=== PATIENT | female | born 1955 | race Caucasian/White ===

== ENCOUNTER 2019-11-27 08:34 | Outpatient (CLI) | payer BC, SELFPAY ==
--- NOTE | ~2019-11-27 | CT_ITS ---
EXAMINATION: CT abdomen pelvis wo/w con DATE: 11/27/2019 10:08 INDICATION: C material. TECHNIQUE: Computed tomography (CT) of the abdomen and pelvis was performed without and with intraven ous contrast using a total of 130 mL Omnipaque-350 intravenous contrast with a double-bolus technique for simultaneous opacification of the renal parenchyma and renal collecting system. Automated exposu re control and iterative reconstruction technique were employed. The dose-length product was 2209.62 mGy-cm. COMPARISON: Abdomen radiographs 11/27/2019 FINDINGS: The visualized portions of the lung bases demonstrate minimal atelectasis. There is a 4 mm nodule at minor fissure, likely benign. There is a 6 mm nodule at minor fissure, likely benign. No pleural effu alina. The heart size is normal. No pericardial effusion. There is diffuse hepatic steatosis. There ar e changes of cholecystectomy. The spleen, pancreas, adrenal glands, and kidneys are normal. There is no urolithiasis. The ureters are well opacified and are normal. The bladder is normal. There are 5.2 x 2.7 cm and 4.3 x 2.6 cm thin-walled cysts in the pelvis, likely peritoneal inclusion cysts. There a re no dilated loops of bowel. The appendix is not visualized. There are no pathologically enlarged ly mph nodes. There is no free intraperitoneal fluid. There is a supraumbilical ventral hernia containin g fat. There is severe thoracic and lumbar spondylosis. IMPRESSION: 1. No etiology for hematuria. 2. Two cysts in the pelvis, likely peritoneal inclusion cysts. 3. Supraumbilical ventral hernia containing fat. Reviewed, dictated and finalized at location A. L GLASS VIAL FILLER
--- NOTE | ~2019-11-27 | XR_ITS ---
EXAMINATION: XR abdomen/kub 1V EXAM DATE: 11/27/2019 09:02 INDICATION: Gross hematuria. TECHNIQUE: Frontal projection of the upper abdomen, frontal projection lower abdomen/pelvis for inter pretation. Correlation is made to CT scan same date. FINDINGS: There is moderate amount of colonic stool and gas. No small bowel dilation, nonobstructiv e bowel gas pattern. There are no suspicious calcifications identified. There is no organomegaly suspected. The bones are unremarkable. There are cholecystectomy clips. Lung bases unremarkable. IMPRESSION: Unremarkable abdomen x-ray exam. Reviewed, dictated and finalized at location B. TIME REPORTER
[2019-11-27 09:39] LABS: Blood Urea Nitrogen 18 mg/dL (8-26); Estimated Glomerular Filt Rate > 60
== END 2019-11-27 08:35 | disposition home or self-care (01) ==
LOC: ANHIMG 08:40
PROVIDERS: PCP Internal Medicine; Visit Provider Nurse Practitioner Adult Health
DX: R31.0 Gross hematuria (principal); N94.89 Other specified conditions associated with female genital organs and menstrual cycle; K43.9 Ventral hernia without obstruction or gangrene
CPT/HCPCS: 74018; 74178; Q9967

== ENCOUNTER 2025-01-13 08:57 | Outpatient (CLI) | payer MEDICARE, SELFPAY ==
--- NOTE | ~2025-01-13 | MM_ITS ---
EXAMINATION: MM screening caridad BI w sanjuana HISTORY: Screening TECHNIQUE: Craniocaudal and mediolateral oblique 3-D tomosynthesis images were obtained and synthetic 2-D images were generated. CAD analysis was submitted and interpreted. COMPARISON: Comparison to multiple prior studies sequentially, with oldest reviewed study dated 04/17. BREAST PARENCHYMAL COMPOSITION: Not dense: There are scattered areas of fibroglandular density. FINDINGS: There is no evidence of suspicious mass, calcification, or architectural distortion to sugg est malignancy in either breast. There has been no suspicious interval change. IMPRESSION: 1. No mammographic evidence of malignancy. 2. Recommend routine screening mammography in one year. BI-RADS Category 1: Negative Reviewed, dictated and finalized at location B.
--- OUTSIDE RECORDS SUMMARY | 2025-01-13 09:28 | XMS_ITS | Clinical Summary ---
Author Organization [facility] Address [address] [place] [address] Care Team Providers Care Aircraft De Icer Installer Name Role Phone Violeta De La Cruz MD Unavailable [phone] Manuel Archibald MD Primary Care Provider + [phone] Allergies Active Allergy Reactions Criticality Noted Date Comments Albuterol Hives Reaction: Hives, Erythromycin Other (See comments) Low Drop in BP Semaglutide Diarrhea,Nausea only High 05/22/2024 Medications ALPRAZolam (XANAX) 0.25 mg tablet Take by mouth 3 (three) times a day as needed 1 Active armodafiniL (NUVIGIL) 250 mg tablet armodafinil 250 mg tablet Active calcium-magnesi um-zinc tablet Take 1 tablet by mouth 2 (two) times a day Active MULTIVITAMIN ORAL Take 1 tablet by mouth daily Active cyanocobalamin, vitamin B-12, (VITAMIN B-12 ORAL) 5,000 mg 8 Active vitamin E (AQUASOL E, D-ALPHA TOCOPHEROL, ORAL) vitamin E Active hydrOXYzine (VISTARIL) 25 mg capsule TAKE 2 CAPSULES BY MOUTH EVERYDAY AT BEDTIME 4 Active OneTouch Ultra2 Meter misc USE TO TEST BLOOD SUGAR DAILY [address] (PROTONIX) 40 mg EC tablet Take 1 tablet (40 mg total) by mouth daily 4 Active glimepiride (AMARYL) 4 mg tabletIndicatio ns:type 2 diabetes mellitus Take 1 tablet (4 mg total) by mouth 2 (two) times a day 180 tablet 3 4 Active metFORMIN XR (GLUCOPHAGE XR) 500 mg 24 hr tablet Take 2 tablets (1,000 mg total) by mouth 2 (two) times a day 360 tablet 3 4 Active fenofibrate (TRIGLIDE) 160 mg tablet Take 1 tablet (160 mg total) by mouth daily 90 tablet 3 4 Active atorvastatin (LIPITOR) 40 mg tablet Take 1 tablet (40 mg total) by mouth daily 90 tablet 3 4 Active lisinopriL (PRINIVIL,ZESTR IL) 5 mg tablet Take 1 tablet (5 mg total) by mouth daily 90 tablet 3 4 Active BD Ultra-Fine Short Pen Needle 31 gauge x 5/16 needle Inject insulin daily 100 each 3 4 Active OneTouch Ultra Test strip Use to check sugars BID Dx code E11.65 on insulin 200 each 3 4 Active OneTouch Delica Plus Lancet 30 gauge misc Use to check sugar twice daily Dx E11.65 on insulin 200 each 3 4 Active TRESIBA 200 unit/mL (3 mL) pen for injection Inject 0.3 mL (60 Units total) under the skin nightly 54 mL 3 4 Active tirzepatide (Mounjaro) 2.5 mg/0.5 mL pen injector injection Inject 0.5 mL (2.5 mg total) under the skin every 7 days 2 mL 6 5 Active Active Problems Problem Noted Date Diagnosed Date Hyperlipidemia associated with type 2 diabetes kizzy chery 09/02/2024 Assessment & Plan (01/12/2025 3:49 PM CDT): Chronic problem. On statin therapy, no changes. Assessment & Plan (09/04/2024 2:53 PM RADIATION MONITOR): Chronic problem. On statin therapy, no changes. Hypertension associated with type 2 diabetes mariella litus 09/02/2024 Assessment & Plan (01/12/2025 3:49 PM CDT): Chronic problem, Controlled on lisinopril. No changes. Assessment & Plan (09/04/2024 2:53 PM RADIATION MONITOR): Chronic problem, Controlled on lisinopril. No changes. Ptosis of both eyelids 09/14/2021 Assessment & Plan (09/14/2021 11:29 AM RADIATION MONITOR): Has seen Oculoplastics at , is awaiting cataract surgery to be complete prior to eye lid surgery. Anxiety 08/24/2021 Contusion 08/24/2021 Dizziness 08/24/2021 Osteoarthritis of knee 08/24/2021 Obstructive sleep apnea syndrome 08/24/2021 Assessment & Plan (10/12/2023 9:40 AM RADIATION MONITOR): Due to continued symptoms, the patient will continue with CPAP at 10 cm water pressure. Due to insurance requirements, the patient will complete a nocturnal polysomnogram with split night protocol no MSLT to recertify for CPAP therapy. DME is [employer]. Patient verbalized understanding Nausea 08/24/2021 Malaise and fatigue 08/24/2021 Shoulder pain 08/24/2021 Sprain of ankle 08/24/2021 Foot pain 02/28/2021 Plantar fasciitis of right foot 02/28/2021 Gastroesophageal reflux disease 05/28/2020 Both eyes affected by mild n onproliferative diabetic retinopathy with macular edema, associated with type 2 diabetes mellitus 07/26/2018 Assessment & Plan (08/16/2023 10:10 AM CDT): She has only some very mild/trace noncentral macular edema in both eyes. Her vision is quite good. I have recommended observation at this time. She states she may be changing medications for her diabetic disease, and maybe moving onto Ozempic. I think it be safe for her to do so from an ocular standpoint. Assessment & Plan (11/10/2021 12:01 PM RADIATION MONITOR): Mild NPDR. Last HbA1c 7% OD with persistent parafoveal IRF cyst status post (s/p) Avastin x2. Near pinhole to 20/25+ today. Discussed with patient repeat Avastin, switching anti-VEGF agents, steroid injection, laser therapies, or observing. Discussed the potential for worsening DME after cataract surgery. Patient elects to monitor without injection today, and will monitor the DME after cataract surgery. OS without significant DME, recommend observation. Assessment & Plan (10/13/2021 10:07 AM RADIATION MONITOR): Mild NPDR OU with CI-DME OD. Prevoiusly on prolense with no improvement. Now s/p SVETLANA 4 weeks ago without significant improvement and persistent CI-DME OD today Consider repeat SVETLANA OD today Anal fissure 03/14/2014 Overview (02/01/2017): ANAL FISSURE Internal hemorrhoids 03/14/2014 Overview (02/01/2017): INT HEMRRHOID W COMP NEC Open wound of heel 02/17/2014 Surgical wound dehiscence 02/17/2014 Type 2 diabetes mellitus wit h hyperglycemia, with long-term current use of insulin Assessment & Plan (01/12/2025 3:50 PM CDT): Chronic problem, not at goal with frequent hypoglycemia. Lower glimepiride to aB only. Lower Tresiba to 40 units daily. Continue metformin. Start Mounjaro 2.5 mg weekly, she'll let us know if tolerating well and we can increase to 5 mg. Reviewed how to lower Tresiba if lows recur, or to email/call in so we can adjust medications. Update labs. Assessment & Plan (09/04/2024 2:54 PM RADIATION MONITOR): Chronic problem, not at goal. Mounjaro was too expensive. She is in open enrollment now and looking at options that will cover it better. After the first of the year she'll call us and we can send in Mounjaro again to check on camarena. Until then, increase glimepiride to 4 mg BID. Jules 3 placed for her today and she'll resume wearing this. Update labs and request eye exam. Assessment & Plan (05/22/2024 11:19 AM CDT): Chronic, uncontrolled, probably worsened Diet and exercise are cornerstone of the treatment was discussed I encouraged the patient to start 30 units daily walk Cut on carb intake no more than 2 carbs per meal and also overall calorie intake Will try GLP 1 again with Mounjaro, which sometimes can be tolerated better than Ozempic I sent a prescription for 2.5 mg weekly to start now. The patient is warned about the need to stop it in case of severe abdominal pain, nausea and/or diarrhea Increase metformin to a 1000 mg twice a day with meals Continue glimepiride 2 mg twice a day. Continue Tresiba 60 units at bedtime Start CGM with Roadtripperse 3. The patient had the 1st sensor placed and also was connected to our office via [employer] view Assessment & Plan (10/13/2021 10:13 AM RADIATION MONITOR): Persistent but mild ME OD - recommend repeat Avastin OD - R/B/A reviewed pt wished to proceed. Assessment & Plan (09/14/2021 11:27 AM RADIATION MONITOR): Persistent ME OD. Doubt prolensa having an effect, BG well controlled per pt. Ok stop prolensa, Discussed with patient the classification of Diabetic Retinopathy and guarded prognosis and progressive nature of the disease. Discussed therapeutic options including observation, laser, surgery and injections of medication into the eye. Risks, benefits and alternatives to therapy discussed with the patient include but not limited to infection, bleeding, damage to the eye and its structures, loss of vision, deformity,double vision, retinal detachment, retinal tears, elevated ocular pressure, pain, systemic complications such as heart attack or stroke,need for other types of eye medications or surgeries, and the potential for numerous repeated treatments with one or a combination of approaches. The FDA status of anti-VEGF medications were reviewed. The patient understood and wished to proceed with Avastin to the right. AMSLER grid monitoring. Patient is to follow up with us immediately if new changes on AMSLER, flashing lights, floaters, new central or peripheral scotoma, or new central distortion, pain or sudden vision loss occurs. Systemic control, including maintenance of goal blood pressure, blood sugar, and serum lipid levels recommended. Abstainance from smoking/tobacco encouraged Assessment & Plan (06/30/2021 11:15 AM CDT): Type 2 diabetes now with mild nonproliferative background diabetic retinopathy and mild macular edema in the right eye. A1c is 7. We discussed interventions for the macular edema including injections versus observation. After discussion risks and benefits the patient would like to try and bring her diabetes under better control of possible, were hoping that this will help control her macular edema and that she can avoid intravitreal injections. She is using pro lens eyedrops in the right eye, I am uncertain if this will really improve her macular edema, I have encouraged her to stay on this drop should she wish. I have asked that she return to see us roughly 8 weeks time, if the macular edema is worsening she may reconsider the need for intravitreal injections. Nuclear age-related cataract, both eyes Assessment & Plan (11/10/2021 12:06 PM RADIATION MONITOR): Okay to proceed with CEIOL OD. Patient understands the potential worsening of DME after cataract surgery and elects to monitor DME after cataract surgery. If ME worsens, will try a different anti-VEGF agent or intraocular steroid. Will check back a few weeks after cataract surgery. Assessment & Plan (10/13/2021 10:12 AM RADIATION MONITOR): Awaiting cataract surgery pending stabilization of DME . Assessment & Plan (09/14/2021 11:28 AM RADIATION MONITOR): She is considering cataract surgery, will send her back to Dr. De La Cruz when ME under control and ready for surgery. Assessment & Plan (06/30/2021 11:15 AM CDT): Recommend observation. Resolved Problems Problem Noted Date Diagnosed Date Resolved Date Essential hypertension 08/24/202109/02 Type 2 diabetes mellitus without complication 08/24/20 21 09/02/2024 Pure hypercholesterolemia 08/24/2021 Encounters Date Type Department Care Team Description 01/12/2025 1:30 PM CDT Office Visit [facility] [address] [address] Leticia Rdz PA Type 2 diabetes mellitus with hyperglycemia, with long-term current use of insulin (HCC) (Primary Dx); Hyperlipidemia associated with type 2 diabetes mellitus (HCC); Hypertension associated with type 2 diabetes mellitus (HCC) 12/23/2024 Telephone [facility] [place] [address] Camden Virgen MD 11/20/2024 Telephone [facility] [address] [address] Leticia Rdz PA Total Medical Supply from Last 3 Months Surgical History Surgery Date Site/Laterality Comments BREAST BIOPSY 10/29/1987 - 10/28/1988 Right Breast biopsy CHOLECYSTECTOMY 10/29/1985 - 10/28/1986 Cholecystectomy HYSTERECTOMY 10/29/2005 - 10/28/2006 Hysterectomy CARPAL TUNNEL RELEASE 10/29/1998 - 10/28/1999 Left Carpal tunnel release APPENDECTOMY 10/29/1995 - 10/28/1996 Appendectomy OTHER SURGICAL HISTORY 10/29/2006 - 10/28/2007 Hemorrhoidal banding RA/RP 05/04 OTHER SURGICAL HISTORY JOHN: CPAP ( reassed 2-3 wks ago ) ACHILLES TENDON SURGERY 05/29/2023 - 06/28/2023 Left ACHILLES TENDON SURGERY 10/29/2012 - 10/28/2013 Right DILATION AND CURETTAGE OF UTERUS 10/29/1993 - 10/28/1994 DILATION AND CURETTAGE OF UTERUS 10/29/1994 - 10/28/1995 COLONOSCOPY 08/27/2024 [facility] Medical History Medical History Date Comments Hx Other Medical Diet controlled DM Hx Other Medical sleep apnes Anxiety disorder Anxiety Hyperlipidemia Hyperlipidemia Type 2 diabetes mellitus (HCC) D iabetes type 2 Hx Other Medical JOHN DM (diabetes mellitus) (HCC) Asthma Family History Medical History Relation Name Comments Diabetes Brother 1 Diabetes Brother 2 Cancer Brother 3 Cancer Mother Diabetes Mother Diabetes Sister 1 Diabetes Sister 2 Amblyopia Neg Hx Blindness Neg Hx Cataracts Neg Hx Fuchs' dystrophy Neg Hx Glaucoma Neg Hx Hypertension Neg Hx Macular degeneration Neg Hx Retinal detachment Neg Hx Strabismus Neg Hx Stroke Neg Hx Thyroid disease Neg Hx Relation Name Status Comments Brother 1 Brother 2 Brother 3 Mother Sister 1 Sister 2 Social History Tobacco Use Types Packs/Day Years Used Date Smoking Tobacco: Never Smokeless Tobacco: Never Alcohol Use Standard Drinks/Week Comments No 0 (1 standard drink = 0.6 oz pur e alcohol) Comments Unknown Sex and Gender Information Value Date Recorded Sex Assigned at Not on file Legal Sex Female 12:20 AM RADIATION MONITOR Gender Identity Not on file Sexual Orientation Not on file Obstetrics History Last Filed Vital Signs Vital Sign Reading Time Taken Comments Blood Pressure 130/70 01/12/2025 1:28 PM CDT Pulse 67 01/12/2025 1:28 PM CDT Temperature 36.3 C (97.4 F) 10/12/2023 9:20 AM RADIATION MONITOR Respiratory Rate 18 01/12/2025 1:28 PM CDT Oxygen Saturation 97% 10/12/2023 9:20 AM RADIATION MONITOR Inhaled Oxygen Concentration - - Weight 91.3 kg (201 lb 3.2 oz) 01/12/2025 1:28 P M CDT Height 147.3 cm (4' 9.99 ) 01/12/2025 1:28 PM CD T Body Mass Index 42.07 01/12/2025 1:28 PM CDT Plan of Treatment Health Maintenance Due Date Last Done Comments Colon Cancer Screening-Colonoscopy 1957 Depression Screening 1957 Fall Risk Assessment 1957 Hepatitis C Screening 1957 Osteoporosis Screening-Bone Density Scan 1957 eGFR 1957 Lipid Panel 1957 DTaP/Tdap/Td Vaccine (1 - Tdap) 01/24/1968 Hepatitis B Screening 1975 Breast Cancer Screening-Mammogram 12/23/2012 012 Well Visit 65+ 2022 Pneumococcal vaccine 65+ (2 of 2 - PCV) 04/12/2024 04/12/2023, 01/12/2023 Covid-19 Vaccine (8 - 2023-2 5 season) 2024 08/13/2023, 07/26/2022, 03/20/2022, Additional history exists Influenza Vaccine (#1) 2024 , 04/12/2023, 01/12/2023, Additional history exists Dilated Eye Exam 08/16/2024 08/16/2023, , 10/13/2021, Additional history exists Hemoglobin A1C 07/15/2025 01/12/2025, 11/0 04/2024, 05/22/2024 Albumin Creatinine Ratio, Urine 09/04/2025 Foot Exam 09/04/2025 09/04/2024 Zoster Vaccine Completed 12/30/2023, 12/16/2021 Procedures Procedure Name Priority Date/Time Associated Diagnosis Comments POCT GLUCOSE Routine 01/12/2025 1:27 PM CDT Type 2 diabetes mellitus with hyperglycemia, with long-term current use of insulin (HCC) POCT HEMOGLOBIN A1C Routine 01/12/2025 1 :27 PM CDT Type 2 diabetes mellitus with hyperglycemia, with long-term current use of insulin (HCC) ALBUMIN CREATININE RATIO, URINE Routine 09/04/2024 1:43 PM RADIATION MONITOR Type 2 diabetes mellitus with hyperglycemia, with long-term current use of insulin (HCC) from Last 3 Months or Most Recently Relevant to Health Maintenance Results * (ABNORMAL) POCT hemoglobin A1c (01/12/2025 1:27 PM CDT) Hemoglobin A1C, POC 7.2 4.0 - 5.6 % Capillary blood 01/12/2025 1 :27 PM CDT Leticia CARIAS POINT OF CARE TEST ORDE RABIDANIA Final Result * (ABNORMAL) POCT glucose (01/12/2025 1:27 PM CDT) Glucose Blood, POC 259 mg/dL Comment:PPG 2 Hrs Blood 01/12/2025 1:27 PM CDT Leticia CARIAS POINT OF CARE TEST ORDE RABLES Final Result * Albumin Creatinine Ratio, Urine (09/04/2024 1:43 PM RADIATION MONITOR) Albumin Ur <12.0 mg/L Comment: Interpretive Data No reference range established. Current interpretive data was last revised 2019. Creatinine Ur 32.4 mg/dL LARISSA MAST Comment: Interpretive Data No reference range established. Current interpretive data was last revised 2019. Albumin Creatinine Ratio, Ur See Comment 1 - 29 LARISSA MAST Comment:Unable to calculate Urine 09/04/2024 1:43 PM RADIATION MONITOR 09/04/2024 8:33 PM RADIATION MONITOR Leticia CARIAS LAB URINE ORDERABLES Fi nal Result LARISSA MAST [id number] [place] [address] from Last 3 Months or Most Recently Relevant to Health Maintenance Insurance MEDICARE [employer]IONS MED[employer]ARE [employer]IONS Care Teams Aircraft De Icer Installer Relationship Specialty Start Date End Date Manuel Archibald MD [facility] [place] [address] PCP - General Internal Medicine 01/12/25 Violeta De La Cruz MD [address] [facility] [address] [address] Referring Physician Ophthalmology 06/30/21
--- OUTSIDE RECORDS SUMMARY | 2025-01-13 09:28 | XMS_ITS | Referral Summary ---
Author Organization [facility] Address [address] [place] [address] Care Team Providers Care Stull Installer Name Role Phone Violeta De La Cruz MD Unavailable Manuel Archibald MD Primary Care Provider [phone] Encounters Date Type Department Care Team Description 01/12/2025 1:30 PM CDT Office Visit [facility] [address] [address] Leticia Rdz PA Type 2 diabetes mellitus with hyperglycemia, with long-term current use of insulin (HCC) (Primary Dx); Hyperlipidemia associated with type 2 diabetes mellitus (HCC); Hypertension associated with type 2 diabetes mellitus (HCC) 12/23/2024 Telephone [facility] [address] [place] [address] Camden Virgen MD 11/20/2024 Telephone [facility] [address] [address] Leticia Rdz PA [facility] Supply from Last 3 Months Allergies Active Allergy Reactions Criticality Noted Date Comments Albuterol Hives Reaction: Hives, Erythromycin Other (See comments) Low Drop in BP Semaglutide Diarrhea,Nausea only High 05/22/2024 Medications ALPRAZolam (XANAX) 0.25 mg tablet Take by mouth 3 (three) times a day as needed Active armodafiniL (NUVIGIL) 250 mg tablet armodafinil [...] insulin daily 100 each 3 4 Active The Spoken ThoughtTouch Ultra Test strip Use to check sugars [...] changes. Assessment & Plan (09/04/2024 2:53 PM YARD FOREMAN): Chronic problem. On statin therapy, no changes. Hypertension associated with type 2 diabetes mariella litus 09/02/2024 Assessment & Plan (01/12/2025 3:49 PM CDT): Chronic problem, Controlled on lisinopril. No changes. Assessment & Plan (09/04/2024 2:53 PM YARD FOREMAN): Chronic problem, Controlled on lisinopril. No changes. Ptosis of both eyelids 09/14/2021 Assessment & Plan (09/14/2021 11:29 AM YARD FOREMAN): Has seen Oculoplastics at , is awaiting cataract surgery to be complete prior to eye lid surgery. Anxiety 08/24/2021 Contusion 08/24/2021 Dizziness 08/24/2021 Osteoarthritis of knee 08/24/2021 Obstructive sleep apnea syndrome 08/24/2021 Assessment & Plan (10/12/2023 9:40 AM YARD FOREMAN): Due to continued symptoms, the patient will [...] standpoint. Assessment & Plan (11/10/2021 12:01 PM YARD FOREMAN): Mild NPDR. Last HbA1c 7% OD with [...] observation. Assessment & Plan (10/13/2021 10:07 AM YARD FOREMAN): Mild NPDR OU with CI-DME OD. Prevoiusly [...] labs. Assessment & Plan (09/04/2024 2:54 PM YARD FOREMAN): Chronic problem, not at goal. Mounjaro was [...] 60 units at bedtime Start CGM with freestyle Jules 3. The patient had the 1st sensor placed and also was connected to our office via Jules view Assessment & Plan (10/13/2021 10:13 AM YARD FOREMAN): Persistent but mild ME OD - recommend repeat Avastin OD - R/B/A reviewed pt wished to proceed. Assessment & Plan (09/14/2021 11:27 AM YARD FOREMAN): Persistent ME OD. Doubt prolensa having an [...] eyes Assessment & Plan (11/10/2021 12:06 PM YARD FOREMAN): Okay to proceed with CEIOL OD. Patient understands the potential worsening of DME after cataract surgery and elects to monitor DME after cataract surgery. If ME worsens, will try a different anti-VEGF agent or intraocular steroid. Will check back a few weeks after cataract surgery. Assessment & Plan (10/13/2021 10:12 AM YARD FOREMAN): Awaiting cataract surgery pending stabilization of DME . Assessment & Plan (09/14/2021 11:28 AM YARD FOREMAN): She is considering cataract surgery, will send her back to Dr. De La Cruz when ME under control and ready for surgery. Assessment & Plan (06/30/2021 11:15 AM CDT): Recommend observation. Resolved Problems Problem Noted Date Diagnosed Date Resolved Date Essential hypertension 08/24/202109/02 Type 2 diabetes mellitus without complication 08/24/2009/02/2024 Pure hypercholesterolemia 08/24/2021 Social History Tobacco Use Types Packs/Day Years Used Date Smoking Tobacco: Never Smokeless Tobacco: Never Alcohol Use Standard Drinks/Week Comments No 0 (1 standard drink = 0.6 oz pur e alcohol) Comments Unknown Sex and Gender Information Value Date Recorded Sex Assigned at Not on file Legal Sex Female 12:20 AM YARD FOREMAN Gender Identity Not on file Sexual Orientation Not on file Last Filed Vital Signs Vital Sign Reading Time Taken Comments Blood Pressure 130/70 01/12/2025 1:28 PM CDT Pulse 67 01/12/2025 1:28 PM CDT Temperature 36.3 C (97.4 F) 10/12/2023 9:20 AM YARD FOREMAN Respiratory Rate 18 01/12/2025 1:28 PM CDT Oxygen Saturation 97% 10/12/2023 9:20 AM YARD FOREMAN Inhaled Oxygen Concentration - - Weight 91.3 kg (201 lb 3.2 oz) 01/12/2025 1:28 P M CDT Height 147.3 cm (4' 9.99 ) 01/12/2025 1:28 PM CD T Body Mass Index 42.07 01/12/2025 1:28 PM CDT Plan of Treatment Not on file Procedures Procedure Name Priority Date/Time Associated Diagnosis Comments POCT GLUCOSE Routine 01/12/2025 1:27 PM CDT Type 2 diabetes mellitus with hyperglycemia, with long-term current use of insulin (HCC) POCT HEMOGLOBIN A1C Routine 01/12/2025 1 :27 PM CDT Type 2 diabetes mellitus with hyperglycemia, with long-term current use of insulin (HCC) ALBUMIN CREATININE RATIO, URINE Routine 09/04/2024 1:43 PM YARD FOREMAN Type 2 diabetes mellitus with hyperglycemia, with long-term current use of insulin (HCC) from Last 3 Months or Most Recently Relevant to Health Maintenance Results * (ABNORMAL) POCT hemoglobin A1c (01/12/2025 1:27 PM CDT) Hemoglobin A1C, POC 7.2 4.0 - 5.6 % Capillary blood 01/12/2025 1 :27 PM CDT Leticia CARIAS POINT OF CARE TEST ORDE RABLES Final Result * (ABNORMAL) POCT glucose (01/12/2025 1:27 PM CDT) Glucose Blood, POC 259 mg/dL Comment:PPG 2 Hrs Blood 01/12/2025 1:27 PM CDT Leticia CARIAS POINT OF CARE TEST ORDE RABLES Final Result * Albumin Creatinine Ratio, Urine (09/04/2024 1:43 PM YARD FOREMAN) Albumin Ur <12.0 mg/L Comment: Interpretive Data No reference range established. Current interpretive data was last revised 2019. Creatinine Ur 32.4 mg/dL LARISSA MAST Comment: Interpretive Data No reference range established. Current interpretive data was last revised 2019. Albumin Creatinine Ratio, Ur See Comment 1 - 29 LARISSA MAST Comment:Unable to calculate Urine 09/04/2024 1:43 PM YARD FOREMAN 09/04/2024 8:33 PM YARD FOREMAN Leticia CARIAS LAB URINE ORDERABLES Fi nal Result LARISSA MAST [id number] [address] Department [place] [address] from Last 3 Months or Most Recently Relevant to Health Maintenance Insurance MEDICARE SOLUTIONS MEDICARE SOLUTIONS Care Teams Stull Installer Relationship Specialty Start Date End Date Manuel Archibald MD [address] [place] [address] PCP - General Internal Medicine 01/12/25 Violeta De La Cruz MD [address] [place] [address] [address], [place] [address] Referring Physician Ophthalmology 06/30/21
--- OUTSIDE RECORDS SUMMARY | 2025-01-13 09:28 | XMS_ITS | Encounter Summary ---
Author Organization [facility] Address [address] [place] [address] Care Team Providers Care Bacteriology Research Assistant Name Role Phone Violeta De La Cruz MD Unavailable [phone] Manuel Archibald MD Primary Care Provider [phone] Reason for Visit * Reason Comments Follow-up TYPE 2 DM Encounter Details Date Type Department Care Team (Late st Contact Info) Description 01/12/2025 1:30 PM CDT [facility] [address] [facility] [address] [place] [phone] [place] [address] [address] Type 2 diabetes mellitus with hyperglycemia, with long-term current use of insulin (HCC) (Primary Dx); Hyperlipidemia associated with type 2 diabetes mellitus (HCC); Hypertension associated with type 2 diabetes mellitus (HCC) Social History Tobacco Use Types Packs/Day Years Used Date Smoking Tobacco: Never Smokeless Tobacco: Never Alcohol Use Standard Drinks/Week Comments No 0 (1 standard drink = 0.6 oz pur e alcohol) Comments Unknown Sex and Gender Information Value Date Recorded Sex Assigned at Not on file Legal Sex Female 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 Gender Identity Not on file Sexual Orientation Not on file documented as of this encounter Last Filed Vital Signs Vital Sign Reading Time Taken Comments Blood Pressure 130/70 01/12/2025 1:28 PM CDT Pulse 67 01/12/2025 1:28 PM CDT Temperature - - Respiratory Rate 18 01/12/2025 1:28 PM CDT Oxygen Saturation - - Inhaled Oxygen Concentration - - Weight 91.3 kg (201 lb 3.2 oz) 01/12/2025 1:28 P M CDT Height 147.3 cm (4' 9.99 ) 01/12/2025 1:28 PM CD T Body Mass Index 42.07 01/12/2025 1:28 PM CDT documented in this encounter Patient Instructions * Patient Instructions* Leticia Rdz PA - 01/12/2025 1:30 PM CDT Stop glimepiride in the evening. Continue glimepiride in the morning for now. Lower Tresiba to 40 units. Drop it 5-10 units at a time if you're still having low sugars. Continue metformin. Start Mounjaro 2.5 mg once a week. If you're doing ok with it and want to increase the dose let us know. [employer] [facility] number: [phone] After 3-4 weeks on Mounjaro, lower the Tresiba another 10 units. documented in this encounter Ordered Prescriptions Prescription Sig Dispense Quantity Refills Last Filled Start Date End Date tirzepatide (Mounjaro) 2.5 mg/0.5 mL pen injector injection Inject 0.5 mL (2.5 mg total) under the skin every 7 days 2 mL 6 01/12/2025 documented in this encounter Progress Notes * Leticia Rdz PA - 01/12/2025 1:30 PM CDT Images from the original note were not included. [facility] Diabetes Follow Up Visit Subjective/Objective Patient ID: Melanie Osborne is a 69 y.o. female who comes in today to our Endocrinology clinic to follow up for DM management. Chief Complaint Follow-up (TYPE 2 DM) HPI Diabetes complications and/or comorbidity include: retinopathy Current medications: Metformin XR 500 mg 2 tabs BID Glimepiride 4 mg BID Mounjaro 2.5 mg weekly - never filled, it was cost prohibitive. But now covered. Tresiba 60 units qHS Intolerant of Ozempic (GI- severe diarrhea and nausea). 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 Home CBG monitoring results: checks blood sugars 4x/day via Jules. Overnight pattern: drops frequently Postprandial pattern: can drop during the day Neuropathy: Last foot exam: 09/21 Statin therapy: Yes. Atorvastatin 40 mg and fenofibrate. Last lipid panel: 06/20 (in notes from PCP). Nephropathy: On YU-I / ARB: Yes. Lisinopril 5 mg. Last MA: 09/21 Last creat/GFR: 06/20 (in notes from PCP).. Retinopathy: Date of last eye examination: 06/21 HTN - on lisinopril. Wt Readings from Last 5 Encounters: 01/12/25 91.3 kg (201 lb 3.2 oz) 09/04/24 91.2 kg (201 lb) 05/22/24 92.7 kg (204 lb 6.4 oz) 10/12/23 92.5 kg (204 lb) Labs: Last A1c: Lab Results Component Value Date HGBA1C 7.2 01/12/2025 HGBA1C 8.4 09/04/2024 HGBA1C 8.8 05/22/2024 Microalbumin: No results found for: MICROALBUR , [id number] Lab Results Component Value Date ALBCREATRATU See Comment 09/04/2024 No results found for: MALBCRTRAT Vitals: 01/12/25 1328 BP: 130/70 BP Location: Right arm Patient Position: Sitting Pulse: 67 Resp: 18 Weight: 91.3 kg (201 lb 3.2 oz) Height: 147.3 cm (4' 9.99 ) Physical Exam Constitutional: Appearance: Normal appearance. HENT: Head: Normocephalic and atraumatic. Cardiovascular: Rate and Rhythm: Normal rate and regular rhythm. Heart sounds: Normal heart sounds. Pulmonary: Effort: Pulmonary effort is normal. Breath sounds: Normal breath sounds. Neurological: General: No focal deficit present. Mental Status: She is alert. Psychiatric: Attention and Perception: Attention normal. Mood and Affect: Mood normal. Behavior: Behavior normal. Assessment/Plan Diagnoses and all orders for this visit: Type 2 diabetes mellitus with hyperglycemia, with long-term current use of insulin (HCC) (Primary) Assessment & Plan: Chronic problem, not at goal with frequent hypoglycemia. Lower glimepiride to aB only. Lower Tresiba to 40 units daily. Continue metformin. Start Mounjaro 2.5 mg weekly, she'll let us know if tolerating well and we can increase to 5 mg. Reviewed how to lower Tresiba if lows recur, or to email/call in so we can adjust medications. Update labs. Orders: - POCT hemoglobin A1c - POCT glucose - Comprehensive metabolic panel; Future - Lipid panel; Future Hyperlipidemia associated with type 2 diabetes mellitus (HCC) Assessment & Plan: Chronic problem. On statin therapy, no changes. Hypertension associated with type 2 diabetes mellitus (HCC) Assessment & Plan: Chronic problem, Controlled on lisinopril. No changes. Other orders - tirzepatide (Mounjaro) 2.5 mg/0.5 mL pen injector injection; Inject 0.5 mL (2.5 mg total) under the skin every 7 days ARETHA Ibarra documented in this encounter Miscellaneous Notes * Assessment & Plan Note - Leticia Rdz PA - 01/12/2025 3:50 PM CDT Associated Problem(s): Type 2 diabetes mellitus with hyperglycemia, with long- term current use of insulin ([facility]) Chronic problem, not at goal with frequent hypoglycemia. Lower glimepiride to aB only. Lower Tresiba to 40 units daily. Continue metformin. Start Mounjaro 2.5 mg weekly, she'll let us know if tolerating well and we can increase to 5 mg. Reviewed how to lower Tresiba if lows recur, or to email/call in so we can adjust medications. Update labs. * Assessment & Plan Note - Leticia Rdz PA - 01/12/2025 3:49 PM CDT Associated Problem(s): Hyperlipidemia associated with type 2 diabetes mellitus (HCC) Chronic problem. On statin therapy, no changes. * Assessment & Plan Note - Leticia Rdz PA - 01/12/2025 3:49 PM CDT Associated Problem(s): Hypertension associated with type 2 diabetes mellitus (HCC) Chronic problem, Controlled on lisinopril. No changes. documented in this encounter Plan of Treatment Scheduled Orders Name Type Priority Associated Diagnoses Orde r Schedule Comprehensive metabolic panel Lab Routine Type 2 diabetes mellitus with hyperglycemia, with long-term current use of insulin (HCC) Expected: 01/15/2025, Expires: 01/12/2026 Lipid panel Lab Routine Type 2 diabetes mellitus with hyperglycemia, with long-term current use of insulin (HCC) Expected: 01/15/2025, Expires: 01/12/2026 documented as of this encounter Procedures Procedure Name Priority Date/Time Associated Diagnosis Comments POCT HEMOGLOBIN A1C Routine 01/12/2025 1 :27 PM CDT Type 2 diabetes mellitus with hyperglycemia, with long-term current use of insulin (HCC) POCT GLUCOSE Routine 01/12/2025 1:27 PM CDT Type 2 diabetes mellitus with hyperglycemia, with long-term current use of insulin (HCC) documented in this encounter Results * (ABNORMAL) POCT glucose (01/12/2025 1:27 PM CDT) Glucose Blood, POC 259 mg/dL Comment:PPG 2 Hrs Blood 01/12/2025 1:27 PM CDT Leticia CARIAS POINT OF CARE TEST ORDE PRASHANT Final Result * (ABNORMAL) POCT hemoglobin A1c (01/12/2025 1:27 PM CDT) Hemoglobin A1C, POC 7.2 4.0 - 5.6 % Capillary blood 01/12/2025 1 :27 PM CDT Leticia CARIAS POINT OF CARE TEST EMMA CERDA Final Result documented in this encounter Visit Diagnoses Diagnosis Type 2 diabetes mellitus with hyperglycemia, with long-term current use of insulin (HCC)- Primary Hyperlipidemia associated with type 2 diabetes mellitus (HCC) Hypertension associated with type 2 diabetes mellitus (HCC) documented in this encounter Care Teams Bacteriology Research Assistant Relationship Specialty Start Date End Date Manuel Archibald MD [address] [place] [address] PCP - General Internal Medicine 01/12/25 Violeta De La Cruz MD [address] [facility] [address] [place] [address] Referring Physician Ophthalmology 06/30/21 documented as of this encounter
--- OUTSIDE RECORDS SUMMARY | 2025-01-13 09:28 | XMS_ITS | Clinical Summary ---
Author Organization [facility] Address [address] [place] [address] Care Team Providers Care Die Cutter Apprentice Name Role Phone Unavailable Primary Care Provider Unavailabl e Social History Tobacco Use Types Packs/Day Years Used Date Smoking Tobacco: Never Assessed Comments Unknown Sex and Gender Information Value Date Recorded Sex Assigned at Not on file Legal Sex Female 11:52 AM CDT Gender Identity Not on file Sexual Orientation Not on file Plan of Treatment Health Maintenance Due Date Last Done Comments Colorectal Cancer Screening Colonoscopy (10 Years) 1957 Hepatitis C 1975 DTaP, Tdap and Td Vaccines ( 1 - Tdap) 01/24/1976 Mammogram Screening 1997 Zoster Vaccines (1 of 2) 2007 Dexa Scan (General) 2022 Pneumococcal Vaccine: 65+ Ye ars (1 of 1 - PCV) 2022 COVID-19 Vaccine (2023-2 5 season) 2024 Influenza Adult (#1) 2024 RSV Immunization or 60+ Years (1 - 1-dose 75+ series) 01/24/2032 Meningococcal B Vaccine Aged Out No l onger eligible based on patient's age to complete this topic Meningococcal Vaccine Aged Out No tiffanie therese eligible based on patient's age to complete this topic RSV Immunizations Under 20 Months Aged Out No longer eligible based on patient's age to complete this topic
--- OUTSIDE RECORDS SUMMARY | 2025-01-13 09:28 | XMS_ITS | CONTINUITY OF CARE DOCUMENT ---
Author Name chao guidry Address Unknown Organization [facility] Address [address] [facility] [address] [place] [address] Phone [phone] Care Team Providers Care Deodorizer Operator Name Role Phone Karla Ramos MD Unavailable NORAH RIOS MD Unavailable [phone] NORAH RIOS MD Unavailable INSURANCE PROVIDERS Payer name Policy type / Coverage type [place] red alliance party ID [facility] [id number] Other [id number] [facility] [employer] [id number]
--- OUTSIDE RECORDS SUMMARY | 2025-01-13 09:29 | XMS_ITS | Clinical Summary ---
Author Organization [facility] Address [address] [place] [address] Care Team Providers Care Broadcast Producer Name Role Phone [facility], External Provider Primary Care Provider U navailable Allergies Active Allergy Reactions Criticality Noted Date Comments Erythromycin Hypotension High 02/20/2014 Medications glyBURIDE (DIABETA) 5 mg tablet Take 10 mg by mouth daily with breakfast. 5 mg at night Active INSULIN DETEMIR (LEVEMIR SUBCUT) Inject 25 Units by subcutaneous injection daily at bedtime. Active armodafinil (NUVIGIL) 150 mg tablet Take 150 mg by mouth daily at bedtime. Active LEVOCETIRIZINE DIHYDROCHLORIDE (XYZAL ORAL) Take 5 mg by mouth daily at bedtime. Active pantoprazole (PROTONIX) 40 mg Tablet, Delayed Release (E.C.) Take 40 mg by mouth 2 times daily. Active [place]-3 Fatty Acids (FISH OIL) 500 mg Capsule Take 1 Tab by mouth daily. Active MULTIVITAMIN ORAL Take 1 Tab by mouth daily. Active CALCIUM CARBONATE (CALCIUM 500 ORAL) Take 1 Tab by mouth 2 times daily. Active furosemide (LASIX) 20 mg tablet Take 20 mg by mouth 1 time daily as needed. Active ALPRAZolam (XANAX) 0.25 mg tablet Take 0.25 mg by mouth 3 times daily as needed for Anxiety. Active HYDROcodone-acetami nophen (NORCO) 5-325 mg tablet Take 1 Tab by mouth every 4 hours as needed for Pain, Moderate. 30 Tab 0 02/24/20 14 Active Active Problems Problem Noted Date Diagnosed Date Open wound of heel 02/17/2014 Surgical wound dehiscence 02/17/2014 Family History Medical History Relation Name Comments Breast Cancer Mother Relation Name Status Comments Mother Social History Tobacco Use Types Packs/Day Years Used Date Smoking Tobacco: Never Smokeless Tobacco: Never Alcohol Use Standard Drinks/Week Comments Yes 0 (1 standard drink = 0.6 oz pur e alcohol) rarely Comments Unknown Sex and Gender Information Value Date Recorded Sex Assigned at Not on file Legal Sex Female 5:58 AM DIRECTOR PROPERTY Gender Identity Not on file Sexual Orientation Not on file Occupation Industry Job Start Date Job End Date Not on file Not on file Not on file Not on file Last Filed Vital Signs Vital Sign Reading Time Taken Comments Blood Pressure 134/72 03/17/2014 8:54 AM CDT Pulse 79 02/23/2014 1:32 PM CDT Temperature 36.2 C (97.2 F) 02/23/2014 1:32 PM CDT Respiratory Rate 16 02/23/2014 1:32 PM CDT Oxygen Saturation 98% 02/23/2014 1:32 PM CDT Inhaled Oxygen Concentration - - Weight 88.5 kg (195 lb) 03/17/2014 8:54 AM CDT Height 149.9 cm (4' 11 ) 03/17/2014 8:54 AM CDT Body Mass Index 39.39 03/17/2014 8:54 AM CDT Plan of Treatment Health Maintenance Due Date Last Done Comments DTAP/TDAP/TD VACCINES (1 - Tdap) 01/24/1976 COLORECTAL SCREENING 2002 Colorectal Cancer Screening 2002 FIT-DNA Q 3 years 2002 FIT/FOBT Q 1 year 2002 Flex Sig/CT Colonography Q 5 years 2002 PNEUMOCOCCAL VACCINE 50+ YEA RS (1 of 1 - PCV) 2007 ZOSTER VACCINE (1 of 2) 2007 BREAST CANCER SCREENING 04/17/2018 04/17/20 17, 12/23/2011, 10/27/2010 OSTEOPOROSIS SCREENING 2022 INFLUENZA VACCINE (#1) 2024 RSV VACCINE (60+ or ) (1 - 1-dose 75+ series) 01/24/2032 Procedures Procedure Name Priority Date/Time Associated Diagnosis Comments MAMMO DIAGNOSTIC BILATERAL W OR WO CAD Routine 04/17/2017 3:10 PM CDT Breast lump from Last 3 Months or Most Recently Relevant to Health Maintenance Results * MAMMO DIAGNOSTIC BILATERAL W OR WO CAD (04/17/2017 3:10 PM CDT) Anatomical Region Laterality Modality Breast Bilateral Mammography 04/17/2017 3:10 PM CDT Impressions 04/18/2017 10:34 AM CDT IMPRESSION: Negative and stable bilateral diagnostic mammogram. Palpable lesion upper slightly inner right breast is consistent with a benign lipoma. Recommend routine clinical follow-up. OVERALL ASSESSMENT: BI-RADS category 2 - Benign findings Dictated from: [facility] 04/18/2017 10:34 AM CDT DIAGNOSTIC MAMMOGRAM BILATERAL DIGITAL WITH CAD AND LIMITED RIGHT BREAST SONOGRAM 04/17/2017 HISTORY: Palpable area upper slightly inner right breast. A bilateral diagnostic mammogram was performed. A BB was placed over the palpable area in the upper slightly inner right breast. The BB can only be seen on the oblique film and at the edge of the CC view. Comparison is made with multiple previous studies including 12/23/2011 and 10/27/2010. There are minimal scattered fibroglandular densities. No masses, suspicious calcifications, areas of asymmetry or distortion are identified. No mass is identified adjacent to the BB in the upper right breast. CAD was utilized. Sonography of the palpable lesion demonstrates an echogenic lesion just deep to the skin measuring approximately 1 x 2 cm. It is consistent with a benign lipoma. No suspicious mass, shadowing or distortion is identified. Mathew Ceron MD MAMMO ORDERABLES Olinda l Result from Last 3 Months or Most Recently Relevant to Health Maintenance Insurance BLUE ACCESS/TRUE BLUE PPO Advance Directives For more information, please contact: [phone] * Full Code (Latest Code Status on File) Date Activated Date Inactivated Comments 02/23/2014 8:35 AM 02/23/2014 4:11 PM Care Teams Broadcast Producer Relationship Specialty Start Date End Date [facility], External Provider [address] [place] [address] PCP - General 12/23/11
--- OUTSIDE RECORDS SUMMARY | 2025-01-13 09:29 | XMS_ITS | Patient Health Record ---
Author Organization [facility] Address [address] [address] Care Team Providers Care Research Quality Assurance Analyst Name Role Phone Manuel Archibald MD Primary Care Provider Unavaila sylvia Tate DPM, Parag Unavailable [phone] ALLERGIES Allergen (clinical drug ingredient) Drug/Non Drug Allergy documented on EMR Reaction Allergy Type Onset Date Status erythromycin Erythromycin Unknown Drug Allergy A ctive REASON FOR REFERRAL No Information MEDICATIONS Medication SIG (Take, Route, Fr equency, Duration) Notes Start Date End Date Status Aspirin 81 Active Vitamin B Complex Ac tive Vitamin E Active ALPRAZolam Active Fiber Active Lisinopril Active metFORMIN HCl Active Pantoprazole Sodium Active Furosemide Active Magnesium Active Atorvastatin Calcium Active Biotin Active Glimepiride Active Calcium Active hydrOXYzine HCl Acti ve One A Day Women 50 Plus Active Fenofibrate Active IMMUNIZATIONS Vaccine Route Administration Date Status Comme nts Influenza Unknown 01/12/2023 Administered pneumoccocal Unknown 01/12/2023 Administered Influenza Unknown 04/12/2023 Administered pneumoccocal Unknown 04/12/2023 Administered SOCIAL HISTORY Tobacco Use: Social History Observation Description Date Details (start date - stop date) Never Smoker NA - NA Sex Assigned At : Social History Observation Description Sex Assigned At Unknown Tobacco Use: Question Answer Notes Patient is a: nonsmoker Alcohol screening: Question Answer Notes Did you have a drink contain ing alcohol in the past year? Yes How often did you have a dri nk containing alcohol in the past year? Two to three times per week (3 points) How many drinks did you have on a typical day when you were drinking in the past year? 1 or 2 (0 points) How often did you have six o r more drinks on one occasion in the past year? Less than monthly (1 point) Points 4 Interpretation Positive PROBLEMS Problem Type ICD Code Onset Dates Problem Status W/U Status Risk SNOMED Code Notes Problem Other specified diabetes mellitus with diabetic polyneuropathy, unspecified whether director long term care insulin use (E13.42) 3 Active confirmed 67905239 Problem Ingrowing nail (L60.0) 3 Active confirmed 346614317 Problem Overgrown nail (L60.2) 3 Active confirmed 85998387 Problem Need for assistance with personal care (Z74.1) 3 Active confirmed [id number] PLAN OF TREATMENT No Information Insurance Providers Payer Name Payer Address Payer Phone Subscriber Number Group Number Insured Name Patient Relationship to Insured Coverage Start Date Coverage End Date Medicare [address] [place] [phone] [id number] Melanie Osborne Self - patient is the insured [facility] [address] [place] [phone] [id number] Melanie Osborne Self - patient is the insured MEDICAL (GENERAL) HISTORY Medical History History ICD Code DM Acid reflux IBS Asthma Sleep apnea Surgical History Surgery Date(Month/Year)
--- OUTSIDE RECORDS SUMMARY | 2025-01-13 09:29 | XMS_ITS | Data Portability ---
Author Organization [employer], Main Office Address [address] [place] [address] Assessment Encounter Date Assessment Date Assessment LastModified by Organization Details LastModified Time 05/25/2023 05/25/2023 Sounds like cervical radiculopathy physical therapy Medrol Dosepak tizanidine 4 mg b.i.d. see me back in 3 weeks x-ray the next [email or web address] Not available 05/26/2023 11:18:30 06/13/2023 06/13/2023 Physical therapy follow up in 1 month cpap supplies [email or web address] Not available 07/02/2023 21:49:58 07/18/2023 07/18/2023 Will continue with current therapy follow-up with me in 4 months needs to do better on blood sugar [email or web address] Not available 10/25/2023 22:39:41 11/21/2023 11/21/2023 Diagnosis discussed last blood work reviewed all questions answered and diagnosis in the assessment and plan a follow-up in 4 continue current therapy [email or web address] Not available 11/28/2023 08:34:09 Plan of Treatment Reminders Order Date Submit Date Provider Last Modified By Organization Details Last Modified Time Details Appointments None recorded. Lab cortisol, am, serum 2022 023 [facility] (Lab), [address] [place], [address], 11:16:35 dexamethaso ne, serum 2022 023 [facility] (Lab), [address] [place], [address], 3 09:08:37 Referral physical therapist referral 2022 023 [facility] [place], [address] [address], [place], [address], 3 09:58:25 Procedures None recorded. Surgeries None recorded. Imaging XR, cervical spine, 2 or 3 view 2022 023 [email or web address] [facility] ([facility]), [address] [place], [address], 3 19:01:32 Medication Orders dexamethaso ne 1 mg tablet 2022 023 [email or web address] [id number], [address], [place], [address], 3 14:10:42 Medrol (Charlie) 4 mg tablets in a dose pack 2022 023 [email or web address] 45 [id number], [address], [place], [address], 3 15:37:14 tizanidine 4 mg tablet 2022 023 [email or web address] 45 [id number], [address], [place], [address], 3 14:10:45 Patient TargetsNo targets recorded. Patient InstructionsNo instructions recorded. Reason for Referral Physical Therapist Referral for Cervical radiculopathy Referring Physician: Manuel Archibald, Internal Medicine, Encounter Date: 05/25/2023 Results Created Date Observation Date Name Description Value Unit Range Abnormal Flag Note LastModifiedBy Organization Detail LastModifiedTime 06/12/20 23 06/12/2023 MICRO ALBUM N RNDM W/CRE AT RATIO ur creat 58.12 mg/dL REFER ENCE RANGE NOT ESTAB LISHE D FOR RANDO M URINE CREAT ININE Not Available [facility] (Lab) [address] [place], [address], 06/12/2023 16:55:22 06/12/20 23 06/12/2023 MICRO ALBUM N RNDM W/CRE AT RATIO microalbumin , urine 7.7 mg/L 0.0-16 .6 Not Available [facility] (Lab) [address] [place], [address], 06/12/2023 16:55:22 06/12/20 23 06/12/2023 MICRO ALBUM N RNDM W/CRE AT RATIO microalbumin /creatinine ratio 13 mcg/m g 0-29 THE [facility]I CAN DI[facility] IATIO N DEFIN ES ABNOR MALIT IES IN ALBUM IN EXCRE TION FOLLO WS: CATEG ORY RESUL T (MCG/ MG CREAT ININE ) RADHA L <30 MICRO ALBUM INURI A 30-29 9 CLINI ABHINAV ALBUM INURI A > OR = 300 THE ADA RECOM MENDS THAT 2 OF 2 SPECI MENS COLLE CTED WITHI N A 3- TO 6-MON TH PERIO D BE ABNOR MAL BEFOR E CONSI MARIA TERESA G A PATIE NT TO HAVE CROSS ED ONE OF THESE DIAGN OSTIC THRES HOLDS . REFER ENCE: DIABE [facility], VOL. 26: S94-S 96, 2002 Not Available [facility] (Lab) [address] [place], [address], 06/12/2023 16:55:22 06/12/20 23 06/12/2023 LIPID PANEL cholesterol 143 mg/dL 140-19 9 NIH BRYSON NSUS RECOM MENDA TION FOR RICHELLE STERO L: ADULT CHILD LOW RISK: <200 <170 BORDE RLINE : <200- 239 ----- HIGH RISK: >240 >200 Not Available [facility] (Lab) [address] [place], [address], 06/12/2023 17:07:33 06/12/20 23 06/12/2023 LIPID PANEL triglyceride s 189 mg/dL 0-150 high NIH BRYSON NSUS REPOR T RECOM MENDA TION FOR TRIGL YCERI KORTNEY: ADULT CHILD LOW RISK: <150 ----- BODER LINE: 150-1 99 ----- HIGH RISK: >200 ----- Not Available [facility] (Lab) [address] [place], [address], 06/12/2023 17:07:33 06/12/20 23 06/12/2023 LIPID PANEL HDL cholesterol 43 mg/dL 40- Not Available [facility] (Lab) [address] [place], [address], 06/12/2023 17:07:33 06/12/20 23 06/12/2023 LIPID PANEL LDL cholesterol, calculated 62 mg/dL 0-130 NIH BRYSON NSUS REPOR T RECOM MENDA TIONS FOR LDL: ADULT CHILD LOW RISK <130 <110 (OPTI MAL LDL) <100 ----- BORIS RLINE : 130-1 59 ----- HIGH RISK: >160 >130 A TRIGL YCERI DE RESUL T >400 INVAL IDATE S THE CALCU LATIO N FOR LDL FRACT IONAT ION - THE LDL RESUL T WILL NOT BE REPOR RACHEL. Not Available [facility] (Lab) [address] [place], [address], 06/12/2023 17:07:33 06/12/20 23 06/12/2023 COMPR EHENS DAMARIS METAB OLIC PANEL sodium 136 mmol/ L 137-14 5 low Not Available [facility] (Lab) [address] [place], [address], 06/12/2023 17:07:44 06/12/20 23 06/12/2023 COMPR EHENS DAMARIS METAB OLIC PANEL potassium 4.6 mmol/ L 3.5-5. 1 Not Available [facility] (Lab) [address] [place], [address], 06/12/2023 17:07:44 06/12/20 06/12/2023 COMPR EHENS DAMARIS METAB OLIC PANEL chloride 101 mmol/ L 98-107 Not Available [facility] (Lab) [address] [place], [address], 06/12/2023 17:07:44 06/12/20 23 06/12/2023 COMPR EHENS DAMARIS METAB OLIC PANEL carbon dioxide 28 mmol/ L 22-30 Not Available [facility] (Lab) [address] [place], [address], 06/12/2023 17:07:44 06/12/20 23 06/12/2023 COMPR EHENS DAMARIS METAB OLIC PANEL anion gap 11.6 mmol/ L 14-22 low Not Available [facility] (Lab) [address] [place], [address], 06/12/2023 17:07:44 06/12/20 23 06/12/2023 COMPR EHENS DAMARIS METAB OLIC PANEL glucose 141 mg/dL 70-99 high Not Available [facility] (Lab) [address] [place], [address], 06/12/2023 17:07:44 06/12/20 23 06/12/2023 COMPR EHENS DAMARIS METAB OLIC PANEL BUN 22 mg/dL 8-19 high Not Available [facility] (Lab) [address] [place], [address], 06/12/2023 17:07:44 06/12/20 23 06/12/2023 COMPR EHENS DAMARIS METAB OLIC PANEL creatinine 0.88 mg/dL 0.66-1 .25 Not Available [facility] (Lab) [address] [place], [address], 06/12/2023 17:07:44 06/12/20 23 06/12/2023 COMPR EHENS DAMARIS METAB OLIC PANEL GFR >60 Refer ence Range : [place] ge GFR Healt hy Adult : >60 mL/mi n/1.7 3 m2 Chron ic Kidne y Disea se: 15-60 mL/mi n/1.7 3 m2 Kidne y Failu re: <15/m L/min /1.73 m2 www.n iddk. nih.g ov The MDRD study equat ion has not been valid ated in child nomi <18 years of age; pregn ant women ; the elder ly >85 years of age; or in some racia l or ethni c subgr oups, such as Hispa nics. Outsi de the valid ated tra eters , estim ated GFR is less accur ate, requi ring clini abhinav judgm ent on a case- by-ca se basis . Clini abhinav inter preta tion for other races and ages must be made by the clini roula. The MDRD study equat ion has not been valid ated for the evalu ation of serum creat inine relat ed to nutri kimberly l statu s or medic ation usage . For perso ns <18 years of age, a pedia tric GFR calcu lator is avail able on the [facility] websi te: https ://estuardo w.kid zachariah.o rg/pr ofess ional s/kdo qi/gf r_cal culat or Not Available [facility] (Lab) [address] [place], [address], 06/12/2023 17:07:44 06/12/20 23 06/12/2023 COMPR EHENS DAMARIS METAB OLIC PANEL alkaline phosphatase 48 U/L 38-126 Not Available [facility] (Lab) [address] [place], [address], 06/12/2023 17:07:44 06/12/20 23 06/12/2023 COMPR EHENS DAMARIS METAB OLIC PANEL alanine aminotransfe rase 25 U/L 0-35 Not Available [place] (Lab) [address] [place], [address], 06/12/2023 17:07:44 06/12/20 23 06/12/2023 COMPR EHENS DAMARIS METAB OLIC PANEL aspartate aminotransfe rase 25 U/L 15-37 Not Available [facility] (Lab) [address] [place], [address], 06/12/2023 17:07:44 06/12/20 23 06/12/2023 COMPR EHENS DAMARIS METAB OLIC PANEL bilirubin, total 0.40 mg/dL 0.20-1 .30 Not Available [facility] (Lab) [address] [place], [address], 06/12/2023 17:07:44 06/12/20 23 06/12/2023 COMPR EHENS DAMARIS METAB OLIC PANEL calcium 9.3 mg/dL 8.4-10 .2 Not Available [facility] (Lab) [address] [place], [address], 06/12/2023 17:07:44 06/12/20 23 06/12/2023 COMPR EHENS DAMARIS METAB OLIC PANEL total protein 7.2 g/dL 6.3-8. 2 Not Available [facility] (Lab) [address] [place], [address], 06/12/2023 17:07:44 06/12/20 23 06/12/2023 COMPR EHENS DAMARIS METAB OLIC PANEL albumin 4.3 g/dL 3.0-4. 4 Not Available [facility] (Lab) [address] [place], [address], 06/12/2023 17:07:44 06/12/20 23 06/12/2023 COMPR EHENS DAMARIS METAB OLIC PANEL globulin 2.9 g/dL 2.6-4. 2 Not Available [facility] (Lab) [address] [place], [address], 06/12/2023 17:07:44 06/12/20 23 06/12/2023 COMPR EHENS DAMARIS METAB OLIC PANEL A/G ratio 1.5 ratio 1.0-2. 0 Not Available [facility] (Lab) [address] [place], [address], 06/12/2023 17:07:44 06/12/20 23 06/12/2023 T4 FREE free T4 1.27 NG/dL 0.78-2 .19 Not Available [facility] (Lab) [address] [place], [address], 06/12/2023 17:10:09 06/12/20 23 06/12/2023 TSH thyroid-stim ulating hormone 0.992 uIU/m L 0.465- 4.680 Not Available [facility] (Lab) [address] [place], [address], 06/12/2023 17:11:53 06/12/20 23 06/12/2023 HEMOG LOBIN A1C HA1C 9.0 % 4.0-6. 0 high Diabe chandler Scree daya Crite jonny: <5.7% Consi stent with absen ce of diabe chandler 5.7-6 .4% Consi stent with incre ased risk for diabe chandler (pred iabet es) >OR=6 .5% Consi stent with diabe chandler REFER ENCE: Diabe chandler Care 2015, 39(Garcia ppl.1 ):s13 -s22 Not Available [facility] (Lab) [address] [place], [address], 06/12/2023 19:53:48 06/26/2006/26/2023 CORTI LAMBERT, TOTAL , A.M. yogi AM 1.6 ug/dL 4.5-22 .7 low Not Available [facility] (Lab) [address] [place], [address], 06/26/2023 11:16:35 06/26/20 23 07/02/2023 DEXAM ETHAS ONE dexamethason e 335 NG/dL This test was devel oped and its perfo rmanc e cj cteri stics deter mined by [facility]. It has not been clear ed or appro mikhail by the Food and Drug Admin istra tion. Refer ence Range : Adult s basel ine: <30 8:00 AM follo wing 1 mg dexam ethas one previ ous eveni n - 295 8:00 AM follo wing 8 mg dexam ethas one (4 x 2 mg doses ) previ ous day: 1600 - 2850 Perfo rmed at: ES [facility] [employer] [address] [place] [address] Lab Direc tor: Nima gama MD, Phone : [phone] Not Available [facility] ([facility]) [address] [place], [address], 07/02/2023 09:08:37 04/30/20 23 04/29/2023 CPAP compl iance * No observ ation record ed. [email or web address] [facility] [address] , [place], [address], 07/19/2023 14:28:00 05/25/20 23 05/25/2023 XR, cervi abhinav spine , 2 or 3 view [facility] [address] [place] [address] [phone] Patien t Name: MISAEL EMERSON Access ion #: [id number] Sex: F : 1954 9 Dictat ed By: David Lopez Attend ing Physic ruben: CHERYLE ARCHIBALD Orderi ng Physic ruben: CHERYLE ARCHIBALD Exam Date: 2022 14:44 PM Exam Name: XR C SPINE 3V Admitt ing Diagno sis(es ): Compar bolivar: None Cervic al spine 4 views Clinic al histor y: Pain Findin gs: There are endpla te osteop hytes noted, along the verteb ral bodies consis tent with degene rative joint diseas e. No acute fractu re seen. If there is concer n, consid er MRI No focal osseou s lesion s are demons trated . No soft tissue mass There is severe narrow ing of the disc at the C3-4 throug h C5-6 levels . Impres alina: 1. Marium altman rative change s Electr onical ly Signed by: David Lopez at 2022 16:17: 38 PM Page 1 [email or web address] [facility] ([facility]) [address] [place], [address], 06/14/2023 09:32:55 Result Notes None recorded. Problems Name Problem SNOMED Code Status Onset Date Resolution Date Notes Provider Name and Address Organization Details Recorded Time Strain of left Achilles tendon 0376181359839 9107 Active 2021 Not Available [facility] 3 01:59:38 Contusion of left foot 4996647051478 9103 Active 2021 Not Available [facility] 3 01:59:38 Plantar fasciitis of right foot 3751741516587 9101 Active 2020 Not Available [facility] 3 01:59:38 Contusion 481049697 Active Not Available [facility] 3 01:59:38 Mammograph y abnormal 914813741 Active 2021 Not Available [facility] 3 01:59:38 Postoperat damaris visit 722954724 Active 2021 Not Available [facility] 3 01:59:38 Dehiscence of surgical wound 02728607 Active 2021 Not Available [facility] 3 01:59:38 Gastroesop hageal reflux disease 487558874 Active 2019 Not Available [facility] 3 01:59:38 Osteoarthr itis of knee 218090496 Active Not Available [facility] 3 01:59:38 Ankle pain 222242699 Active 2021 Not Available [facility] 3 01:59:38 Ankle pain 120473120 Active 2021 Not Available [facility] 3 01:59:38 Pure hyperchole sterolemia 477754749 Active Not Available [facility] 3 01:59:38 Malaise and fatigue 056418258 Active Not Available [facility] 3 01:59:38 Thoracic back pain 019519146 Active 2022 Not Available [facility] 3 01:59:38 Pain in left lower limb 278637563 Active 2021 Not Available [facility] 3 01:59:38 Pain in left lower limb 655248221 Active 2021 Not Available [facility] 3 01:59:38 Current tear of medial cartilage AND/OR meniscus of knee Active Not Available [facility] 3 01:59:38 Type 2 diabetes mellitus without complicati on 205880370 Active Not Available [facility] 3 01:59:38 Enthesopat hy of wrist AND/OR carpus 96445916 Active Not Available [facility] 3 01:59:38 Motion sickness 04111339 Active 2021 Not Available [facility] 3 01:59:38 Dyslipidem ia 625533377 Active 2021 Not Available [facility] 3 01:59:38 Dizziness 480151251 Active Not Available [facility] 3 01:59:38 Nausea 482910753 Active Not Available [facility] 3 01:59:38 Acute urinary tract infection 451887897 Active 2021 Not Available [facility] 3 01:59:38 Uncontroll ed type 2 diabetes mellitus 927141809 Active 2017 Not Available [facility] 3 01:59:38 Sprain of ankle 80872459 Active Not Available [facility] 3 01:59:38 Shoulder pain 66606483 Active Not Available [facility] 3 01:59:38 Foot pain 33528461 Active 2020 Not Available [facility] 3 01:59:39 Foot pain 46961301 Active 2021 Not Available [facility] 3 01:59:39 Anxiety 61467825 Active Not Available [facility] 3 01:59:39 Pain in wrist 44886360 Active Not Available [facility] 3 01:59:39 Essential hypertensi on 48855812 Active Not Available [facility] 3 01:59:39 Chronic ankle instabilit y 149681758 Active 2020 Not Available [facility] 3 01:59:39 Diabetes mellitus 16652073 Active Not Available [facility] 3 01:59:39 Obstructiv e sleep apnea syndrome 98274128 Active Not Available [facility] 3 01:59:39 Weight gain 7626852 Active 2021 Not Available [facility] 3 01:59:39 Mixed hyperlipid emia 037365253 Active 2022 Not Available [facility] 3 01:59:38 Cervical radiculopa thy 50314734 Active 2022 Not Available [facility] 3 01:59:39 Problem Notes None recorded. Procedures Surgical History Date Name Laterality Status Provider Name and Address Organization Details Recorded Time 05/18/20 22 Cataract Surgery completed Not Available [facility] 12/27/2022 02:51:32 05/17/20 22 Foot Surgery completed Not Available [facility] 12/27/2022 02:51:32 07/12/20 18 Date of Last Colonoscopy completed Not Available [facility] 12/27/2022 02:51:26 07/12/20 18 Colonoscopy completed Not Available [facility] 12/27/2022 02:51:32 07/05/20 18 Most Recent Bone Density completed Not Available [facility] 12/27/2022 02:51:26 Appendectomy completed Not Available [facility] 12/27/2022 02:51:32 Cholecystectomy completed Not Available [facility] 12/27/2022 02:51:32 Breast Biopsy completed Not Available [facility] 12/27/2022 02:51:32 Hysterectomy completed Not Available [facility] 12/27/2022 02:51:32 Carpal tunnel completed Not Available [facility] 12/27/2022 02:51:32 lysis of adhesions completed Not Available [facility] 12/27/2022 02:51:32 EGD completed Not Available [facility] 12/27/2022 02:51:32 Cataract Surgery completed Not Available [facility] 12/27/2022 02:51:32 Imaging Results Imaging Date Name Status LastModified by Organiz ation Details LastModified Time 04/29/2023 CPAP compliance* completed [email or web address] [facility] [address], [place], [address], 07/19/2023 14:28:00 05/25/2023 XR, cervical spine, 2 or 3 view completed [facility] (Imaging) [address] [facility], [place], [address], 06/14/2023 09:32:55 Procedure Notes None recorded. Medical Equipment None Reported. Allergies Allergen ID Allergen Name Allergen Category Reaction Reaction Severity Criticality Documentation Date Start Date Code Code System Note Provider Name and Address Organization Details Recorded Time 5114 erythromy alessandra medicatio n Not available Not available Not available 12/27/2022 4053 RxNorm bp drops Not Available [facility] 03:07:01 Medications Name Sig Start Date Stop Date Status Note LastModified by Organization Details LastModified Time carisoprodo l 350 mg tablet 07/24 completed Not Available Not Available Not Available cyclobenzap rine 10 mg tablet 09/24 completed Not Available Not Available Not Available amoxicillin 500 mg capsule TAKE 1 CAPSULE BY MOUTH TWICE A DAY 07/10 completed Not Available Not Available Not Available atorvastati n 40 mg tablet TAKE 1 TABLET BY MOUTH EVERY DAY active Not Available Not Available No t Available metformin 500 mg tablet TAKE 1 TABLET BY MOUTH TWICE A DAY WITH FOOD active Not Available Not Available No t Available prednisone 10 mg tablet Take 3 x 2 days, 2 x 2 days, 1 x 2 days active Not Available Not Available No t Available doxycycline hyclate 100 mg capsule Take 1 capsule twice a day by oral route for 7 days. active Not Available Not Available No t Available atorvastati n 10 mg tablet TAKE 1 TABLET BY MOUTH EVERY DAY active Not Available Not Available No t Available azithromyci n 250 mg tablet Take 1 tablet by oral route as directed for 6 days. 01/23 completed Not Available Not Available Not Available glyburide 5 mg tablet Take 1 tablet by mouth 3 times a day as directed 07/10 completed Not Available Not Available Not Available ibuprofen 800 mg tablet TK 1 T PO Q 8 H PER DAY WITH FOOD NEEDED 06/05 completed Not Available Not Available Not Available tizanidine 4 mg tablet TAKE 1 TABLET BY MOUTH TWICE A DAY FOR 10 DAYS 07/18 completed Not Available Not Available Not Available fluconazole 150 mg tablet 06/05 completed Not Available Not Available Not Available benzonatate 200 mg capsule 07/24 completed Not Available Not Available Not Available citalopram 10 mg tablet TK ONE T PO QD active Not Available Not Available No t Available hydrocodone 5 mg-acetamin ophen 325 mg tablet 03/20 completed Not Available Not Available Not Available minocycline 100 mg capsule 06/05 completed Not Available Not Available Not Available meloxicam 15 mg tablet Take 1 tablet every day by oral route with meals for 21 days. 07/15 completed Not Available Not Available Not Available terconazole 0.8 % vaginal cream 11/03 completed Not Available Not Available Not Available clobetasol 0.05 % topical cream 03/03 completed Not Available Not Available Not Available dextrometho rphan-guaif enesin 10 mg-100 mg/5 mL oral syrup Take 10 mL every 4 hours by oral route as directed for 7 days. 11/07 completed Not Available Not Available Not Available sulfamethox azole 800 mg-trimetho prim 160 mg tablet TAKE 1 TABLET BY MOUTH TWICE A DAY FOR 21 DAYS 09/09 completed Not Available Not Available Not Available hydrocodone 10 mg-acetamin ophen 325 mg tablet 01/23 completed Not Available Not Available Not Available tramadol 50 mg tablet 07/24 completed Not Available Not Available Not Available glimepiride 2 mg tablet TAKE 1 TABLET BY MOUTH TWICE A DAY WITH FOOD active Not Available Not Available No t Available ketorolac 10 mg tablet 09/24 completed Not Available Not Available Not Available ketorolac 0.5 % eye drops INSTILL 1 DROP INTO THE OPERATIVE EYE 4 TIMES DAILY STARTING 3 DAYS BEFORE SURGERY 12/15 completed Not Available Not Available Not Available terconazole 80 mg vaginal suppository 10/01 completed Not Available Not Available Not Available oxycodone-a cetaminophe n 5 mg-325 mg tablet TAKE 1 TABLET BY MOUTH EVERY 6 HOURS NEEDED FOR PAIN 12/15 completed Not Available Not Available Not Available alprazolam 0.25 mg tablet TAKE 1 TABLET 3 TIMES A DAY BY ORAL ROUTE NEEDED. active Not Available Not Available No t Available prednisolon e acetate 1 % eye drops,suspe nsion INSTILL ONE DROP INTO THE OPERATIVE EYE 4 TIMES A DAY 12/15 completed Not Available Not Available Not Available OneTouch Ultra Test strips USE TO CHECK BLOOD GLUCOSE UP TO 3 TIMES A DAY. active Not Available Not Available No t Available dexamethaso ne 1 mg tablet TAKE 1 TABLET BY MOUTH NEEDED AT 10 PM NIGHT BEFORE 8 AM CORTISOL LEVEL DRAWN 07/18 completed Not Available Not Available Not Available sulfacetami de sodium 10 % eye drops 1 drop to right eye tid x 1 wk/ NO CONTACT LENSES active Not Available Not Available No t Available hydrocodone 7.5 mg-acetamin ophen 325 mg tablet 07/24 completed Not Available Not Available Not Available cephalexin 500 mg capsule Take 1 capsule 3 times a day by oral route for 7 days. active Not Available Not Available No t Available pantoprazol e 40 mg tablet,dunia yed release TAKE 1 TABLET BY MOUTH EVERY DAY active Not Available Not Available No t Available Cipro 500 mg tablet Take 1 tablet 3 times a day by oral route for 7 days. active Not Available Not Available No t Available clotrimazol e-betametha sone 1 %-0.05 % topical cream 07/10 completed Not Available Not Available Not Available glimepiride 4 mg tablet TAKE 1 TABLET BY MOUTH EVERY DAY active Not Available Not Available No t Available Regranex 0.01 % topical gel 06/05 completed Not Available Not Available Not Available insulin syringe U-100 with needle 0.3 mL 31 gauge x 03/13 USE DAILY active Not Available Not Available No t Available etodolac 400 mg tablet Take 1 tablet twice a day by oral route for 30 days. active Not Available Not Available No t Available lisinopril 5 mg tablet TAKE 1 TABLET BY MOUTH EVERY DAY active Not Available Not Available No t Available mupirocin 2 % topical ointment APPLY A VERY SMALL AMOUNT TO THE WOUND WITH A LIGHT DRESSING DAILY 06/13 completed Not Available Not Available Not Available furosemide 20 mg tablet TAKE 1 TABLET BY MOUTH EVERY OTHER DAY DIRECTED active Not Available Not Available No t Available cefuroxime axetil 500 mg tablet Take 1 tablet every 12 hours by oral route for 21 days. active Not Available Not Available No t Available levofloxaci n 500 mg tablet 01/23 completed Not Available Not Available Not Available scopolamine 1 mg over 3 days transdermal patch apply 4 hrs. prior to travel change q 72 hrs active Not Available Not Available No t Available methylpredn isolone 4 mg tablets in a dose pack TAKE 1 DOSE PACK BY MOUTH DIRECTED 06/13 completed Not Available Not Available Not Available cefdinir 300 mg capsule Take 1 capsule every 12 hours by oral route for 7 days. active Not Available Not Available No t Available fluticasone propionate 50 mcg/actuati on nasal spray,suspe nsion SPRAY 2 SPRAYS IN EACH NOSTRIL EVERY DAY active Not Available Not Available No t Available colestipol 1 gram tablet Take 1 tablet twice a day by oral route before meals for 30 days. 02/05 completed Not Available Not Available Not Available insulin syringe U-100 with needle 0.5 mL 31 gauge x 5/16 05/28 completed Not Available Not Available Not Available amoxicillin 875 mg-potassiu m clavulanate 125 mg tablet Take 1 tablet twice a day by oral route for 7 days. 09/24 completed Not Available Not Available Not Available hydroxyzine pamoate 25 mg capsule TAKE 2 CAPSULE BY MOUTH EVERYDAY AT BEDTIME active Not Available Not Available No t Available moxifloxaci n 0.5 % eye drops INSTILL ONE DROP INTO THE OPERATIVE EYE 4 TIMES A DAY 12/15 completed Not Available Not Available Not Available Crestor 10 mg tablet Take 1 tablet every day by oral route. 12/03 completed Not Available Not Available Not Available nitrofurant oin monohydrate /macrocryst als 100 mg capsule TAKE 1 CAPSULE BY MOUTH TWICE A DAY FOR 5 DAYS 12/15 completed Not Available Not Available Not Available BD Ultra-Fine Mini Pen Needle 31 gauge x 16 use daily 05/28 completed Not Available Not Available Not Available calcium carbonate-m agnesium oxide-zinc 333 mg-133 mg-5 mg tablet Take by oral route. 2020 active Not Available Not Available Not Avai lable fenofibrate 160 mg tablet TAKE 1 TABLET BY MOUTH EVERYDAY AT BEDTIME active Not Available Not Available No t Available magnesium 2020 active Not Available Not Available Not Avai lable melatonin 12/15 completed Not Available Not Available Not Available vitamin E 2020 active Not Available Not Available Not Avai lable Aspir-81 Q 3 Days 2017 active Not Available Not Available Not Avai lable Centrum Silver 2020 active Not Available Not Available Not Avai lable apple cider vinegar 06/12 completed Not Available Not Available Not Available Levemir U-100 Insulin 100 unit/mL subcutaneou s solution INJECT 25 UNITS SUBCUTANE OUSLY EVERY DAY active Not Available Not Available No t Available OneTouch Ultra2 Meter kit 05/28 completed Not Available Not Available Not Available BD Ultra-Fine Short Pen Needle 31 gauge x 5/16 USE TO INJECT INSULIN ONCE DAILY active Not Available Not Available No t Available Insulin Syringe 0.5 mL 30 gauge x 5/16 uud 12/01 completed Not Available Not Available Not Available Levemir U-100 Insulin 75cc daily 02/21 completed Not Available Not Available Not Available Pylera 140 mg-125 mg-125 mg capsule 11/03 completed Not Available Not Available Not Available Xyzal 5 mg tablet Take 1 tablet every day by oral route. 2017 active Not Available Not Available Not Avai lable Xyzal 06/12 completed Not Available Not Available Not Available armodafinil 150 mg tablet TAKE 1 TABLET BY MOUTH EVERY DAY active Not Available Not Available No t Available armodafinil 250 mg tablet TAKE 1 TABLET BY MOUTH EVERY DAY active Not Available Not Available No t Available GenTeal Severe 0.3 % eye gel Apply by ophthalmi c route. active Not Available Not Available No t Available B12 500mg daily 2017 active Not Available Not Available Not Avai lable Suprep Bowel Prep Kit 17.5 gram-3.13 gram-1.6 gram oral solution USE DIRECTED 02/24 completed Not Available Not Available Not Available Fiber Gummies 2020 active Not Available Not Available Not Avai lable Janumet XR 50 mg-1,000 mg tablet,exte nded release TAKE 2 TABLETS BY MOUTH EVERY DAY active Not Available Not Available No t Available QNASL 80 mcg/actuati on nasal aerosol spray 01/23 completed Not Available Not Available Not Available BD Insulin Syringe Ultra-Fine 0.3 mL 31 gauge x 15/64 testing bid, dx 250.00 02/24 completed Not Available Not Available Not Available Myrbetriq 25 mg tablet,exte nded release 01/23 completed Not Available Not Available Not Available Prolensa 0.07 % eye drops INSTILL 1 DROP INTO RIGHT EYE EVERY DAY 03/20 completed Not Available Not Available Not Available Victoza 3-Charlie 0.6 mg/0.1 mL (18 mg/3 mL) subcutaneou s pen injector 01/23 completed Not Available Not Available Not Available Farxiga 10 mg tablet Take 1 tablet every day by oral route in the morning for 30 days. active Not Available Not Available No t Available Levemir FlexTouch U-100 Insulin 100 unit/mL (3 mL) subcutaneou s pen INJECT 80 UNITS DAILY active Not Available Not Available No t Available Tresiba FlexTouch U-200 insulin 200 unit/mL (3 mL) subcutaneou s pen INJECT 80 UNITS UNDER THE SKIN AT BEDTIME active Not Available Not Available No t Available Xultophy 100/3.6 100 unit-3.6 mg/mL (3 mL) subcutaneou s insulin pen DIRECTION S TO BE GIVEN AT OFFICE 06/10 completed Not Available Not Available Not Available Accu-Chek Guide Glucose Meter USE DIRECTED active Not Available Not Available No t Available Hair, Skin and Nails Advanced 2020 active Not Available Not Available Not Avai lable Ozempic 0.25 mg or 0.5 mg (2 mg/1.5 mL) subcutaneou s pen injector inject 0.25mg wkly for 4wks then 0.5mg wkly for 4wks 05/25 completed Not Available Not Available Not Available OneTouch Ultra Blue Test Strip active Not Available Not Available N ot Available Accu-Chek Fastclix Lancet Drum USE TO TEST THREE TIMES DAILY BEFORE MEALS active Not Available Not Available No t Available OneTouch Delica Plus Lancet 33 gauge USE TO TEST 3 TIMES DAILY active Not Available Not Available No t Available ID NOW COVID-19 Test Kit TEST DIRECTED TODAY 03/20 completed Not Available Not Available Not Available Fluzone Quad (PF) 60 mcg (15 mcg x 4)/0.5 mL IM syringe PHARMACY ADMINISTE RED 02/16 completed Not Available Not Available Not Available BinaxNOW COVID-19 Ag Self Test kit FOLLOW DIRECTION S ON PACKAGE 06/13 completed Not Available Not Available Not Available Ozempic 0.25 mg or 0.5 mg (2 mg/3 mL) subcutaneou s pen injector active Not Available Not Available Not Available Vitals Date Recorded Body height Body mass index (BMI) Body weight Body temperature Heart rate Systolic blood pressure Diastolic blood pressure Provider Name and Address Organization Details Last Updated DateTime 3 147.32 cm 44.1 kg/m2 64377.9 9 g 97.2 [degF] 76 /min 136 mm[Hg] 84 mm[Hg] NICHOLE King [facility] 3 14:58:09 Date Recorded Body height Body mass index (BMI) Body weight Body temperature Heart rate Systolic blood pressure Diastolic blood pressure Provider Name and Address Organization Details Last Updated DateTime 3 147.32 cm 43.7 kg/m2 29340.8 1 g 97.9 [degF] 65 /min 126 mm[Hg] 82 mm[Hg] NICHOLE King [facility] 3 15:38:59 Date Recorded Body height Body mass index (BMI) Body weight Body temperature Respiratory rate Heart rate Systolic blood pressure Diastolic blood pressure Provider Name and Address Organization Details Last Updated DateTime 3 147.32 cm 43.6 kg/m2 55944.3 7 g 97.8 [degF] 14 /min 67 /min 132 mm[Hg] 74 mm[Hg] Shira Sharma RN [facility] 3 14:27:54 Date Recorded Body height Body mass index (BMI) Body weight Body temperature Heart rate Systolic blood pressure Diastolic blood pressure Provider Name and Address Organization Details Last Updated DateTime 3 147.32 cm 42.6 kg/m2 58266.8 4 g 99 [degF] 67 /min 122 mm[Hg] 80 mm[Hg] Jayashree Burks [place] [email or web address] 3 14:13:21 Date Recorded Body height Body mass index (BMI) Body weight Body temperature Heart rate Oxygen saturation Oxygen saturation in Arterial blood by Pulse oximetry Systolic blood pressure Diastolic blood pressure Provider Name and Address Organization Details Last Updated DateTime 4 147.32 cm 43.3 kg/m2 33672.6 2 g 97.1 [degF] 79 /min 97 % 97 % 142 mm[Hg] 96 mm[Hg] Lakisha gimenez CMA [place] [email or web address] 4 16:37:43 Social History Question Answer Notes LastModified by Organization Details LastModified Time Tobacco Smoking Status Never Smoker Not Available [employer] 12/27/2022 02:37:08 Do You Have An Advance Directive? No MIGRATION.0301 [id number] Information not available 12/27/2022 What Is Your Level Of Alcohol Consumption? Occasional MIGRATION.0301 751021 Information not available 12/27/2022 Are You Blind Or Do You Have Difficulty Seeing? No MIGRATION.0301 [id number] Information not available 12/27/2022 What Is Your Level Of Caffeine Consumption? Heavy MIGRATION.0301 747041 Information not available 12/27/2022 How Much Tobacco Do You Chew? None MIGRATION.0301 893570 Information not available 12/27/2022 In The 14 Days Before Symptom Onset, Have You Had Close Contact With A Laboratory-confi rmed COVID-19 While That Case Was Ill? No MIGRATION.0301 609751 Information not available 12/27/2022 In The 14 Days Before Symptom Onset, Have You Had Close Contact With A Person Who Is Under Investigation For COVID-19 While That Person Was Ill? No MIGRATION.0301 556631 Information not available 12/27/2022 Are You Deaf Or Do You Have Serious Difficulty Hearing? No MIGRATION.0301 553470 Information not available 12/27/2022 What Type Of Diet Are You Following? DIABETIC MIGRATION.0301 237684 Information not available 12/27/2022 Which Illicit Or Recreational Drugs Have You Used? None MIGRATION.0301 882995 Information not available 12/27/2022 Do You Or Have You Ever Used E-cigarettes Or Vape? Never Used Electronic Cigarettes MIGRATION.0301 269254 Information not available 12/27/2022 What Is The Highest Grade Or Level Of School You Have Completed Or The Highest Degree You Have Received? [id number] MIGRATION.0301 766301 Information not available 12/27/2022 What Is Your Occupation? Retired MIGRATION.0301 112956 Information not available 12/27/2022 Have There Been Any Changes To Your Family Or Social Situation? No MIGRATION.0301 571146 Information not available 12/27/2022 What Is The Fluoride Status Of Your Home? Unknown MIGRATION.0301 321278 Information not available 12/27/2022 Are There Any Guns Present In Your Home? No MIGRATION.0301 250212 Information not available 12/27/2022 Do You Use Insect Repellent Routinely? No MIGRATION.0301 512214 Information not available 12/27/2022 Where Do You Live? [facility] MIGRATION.0301 435415 Information not available 12/27/2022 Do You Have A Medical Power Of Pipe Roller? No MIGRATION.0301 565329 Information not available 12/27/2022 What Was The Date Of Your Most Recent Tobacco Screening? 07/18/2023 [email or web address] Information not available 07/18/2023 Have You Ever Been Counseled For Unhealthy Alcohol Use? No MIGRATION.0301 426666 Information not available 12/27/2022 Do You Have Any Pets? Yes MIGRATION.0301 316819 Information not available 12/27/2022 What Is Your Relationship Status? Single MIGRATION.0301 306577 Information not available 12/27/2022 Do You Use Your Seat Belt Or Car Seat Routinely? Yes MIGRATION.0301 206868 Information not available 12/27/2022 Do You Have Smoke And Carbon Monoxide Detectors In Your Home? Yes MIGRATION.0301 276681 Information not available 12/27/2022 Are You Passively Exposed To Smoke? No Passive Exposure As A Child MIGRATION.0301 388658 Information not available 12/27/2022 Do You Or Have You Ever Used Smokeless Tobacco? Never Used Smokeless Tobacco MIGRATION.0301 350621 Information not available 12/27/2022 Are There Any Smokers In Your House? No MIGRATION.0301 724680 Information not available 12/27/2022 How Much Tobacco Do You Smoke? No MIGRATION.0301 625899 Information not available 12/27/2022 What Types Of Sporting Activities Do You Participate In? None MIGRATION.0301 977159 Information not available 12/27/2022 Do You Feel Stressed (tense, Restless, Nervous, Or Anxious, Or Unable To Sleep At Night)? [id number] MIGRATION.0301 461419 Information not available 12/27/2022 Do You Use Any Illicit Or Recreational Drugs? No MIGRATION.0301 317902 Information not available 12/27/2022 Do You Use Sunscreen Routinely? Yes MIGRATION.0301 504780 Information not available 12/27/2022 Has Tobacco Cessation Counseling Been Provided? No Not Needed-nev er Smoked MIGRATION.030 024978 Information not available 12/27/2022 How Many Years Have You Smoked Tobacco? 0 MIGRATION.0301 326639 Information not available 12/27/2022 Have You Recently Traveled Abroad? No MIGRATION.0301 136334 Information not available 12/27/2022 Do You Have Any Dietary Restrictions? No MIGRATION.0301 056738 Information not available 12/27/2022 Do You Or Have You Ever Used Any Other Forms Of Tobacco Or Nicotine? No MIGRATION.0301 841310 Information not available 12/27/2022 Sex: Female Functional Status Question Answer Note LastModified by Organizat ion Details LastModified Time Do you have difficulty walking or climbing stairs? No MIGRATION.036771 4842 Information not available 12/27/2022 Are you able to walk? YESWOREST wearing a boot r/t injury MIGRATION.736743 6408 Information not available 12/27/2022 Do you have difficulty doing errands alone? No MIGRATION.296223 9395 Information not available 12/27/2022 Are you able to care for yourself? Yes MIGRATION.991349 0331 Information not available 12/27/2022 Do you have difficulty dressing or bathing? No MIGRATION.046460 5427 Information not available 12/27/2022 What is your exercise level? Occasional MIGRATION.297373 5831 Information not available 12/27/2022 Mental Status Question Answer Note LastModified by Organizat ion Details LastModified Time Do you have difficulty concentrating, remembering or making decisions? No MIGRATION.[id number] 6 Information not available 12/27/2022 Family History Relationship Description Onset Age of this Age Resolved Age Notes LastModified by Organization Details LastModified Time Mother Malignant neoplastic disease 57 MIGRATION.896 [id number] Not available 12/27/2022 02:51:33 Father Heart disease 80 MIGRATION.161 [id number] Not available 12/27/2022 02:51:33 Father Essential hypertension MIGRATION.609 [id number] Not available 12/27/2022 02:51:33 Medical History Condition Response NERVE DISEASE N BLINDNESS N RHEUMATIC FEVER N KIDNEY STONES N BLADDER PROBLEMS N MRSA N OTHER # 1 N POLIO N LUNG DISEASE/DISORDER N COPD N RADIATION / CHEMOTHERAPY N Other # 2 N BLOOD DISEASES N EAR OR HEARING PROBLEMS N MUMPS N BOWEL PROBLEMS N DEPRESSION (INCLUDING POST ) N STROKE/TIA N ULCERS N BENIGN PROSTATIC HYPERPLASIA N MEASLES N MYOCARDIAL INFARCTION N OBESITY N GERD/NAUSEA Y ANEURYSM N URINARY/BLADDER/KIDNEY PROBLEMS N CORONARY ARTERY DISEASE (CAD) N Do you have Advance directive? N ADDICTION CONCERNS N ENDOMETRIOSIS N Impotence N USE OF BLOOD THINNERS N SKIN PROBLEMS N GASTROINTESTINAL DISORDER Y PERIPHERAL VASCULAR DISEASE N MUSCLE,JOINT OR BONE PROBLEMS N GASTROINTESTINAL BLEEDING N Do you have a living will? N BLOOD CLOTS N ASTHMA Y CATARACTS N ERECTILE DYSFUNCTION N VARICOSITIES N GI PROBLEMS N Low Testosterone N INFERTILITY N AIDS/HIV N CHEMOTHERAPY / RADIATION N LIVER DISEASE N MALE HYPOGONADISM N HYPERTENSION Y Deficiency N TOURETTE'S N ANXIETY DISORDER Y BLOOD TRANSFUSION N ANEMIA/BLOOD DISORDER N CHRONIC EAR INFECTIONS N BRONCHITIS N TUBERCULOSIS N GLAUCOMA N FOOT PROBLEM N DIVERTICULITIS N CHICKENPOX N SLEEP APNEA Y INFECTIOUS DISEASE N HEART ARRHYTHMIA N PROSTATE N INSOMNIA N HIGH CHOLESTEROL / HYPERLIPIDEMIA Y EYE PROBLEMS Y EDEMA N CHRONIC PAIN SYNDROME N CAROTID BLOCKAGE N CONSTIPATION N BACK / NECK PROBLEMS N HAVE YOU BEEN HOSPITALIZED OR SEEN IN [facility] IN THE PAST YEAR ? Y ATHEROSCLEROSIS N BREAST PROBLEMS N DIALYSIS N ECZEMA N OSTEOPOROSIS N ARTHRITIS Y Do you have a healthcare POA? N APPENDICITIS N DIABETES, TYPE Y BAD TEETH N ENT N HEARTBURN / REFLUX N AFIB N AUTISM SPECTRUM DISORDER (ASD) N HEPATITIS / LIVER DISEASE N GOUT N SLEEP DISORDER N ALZHEIMER'S DISEASE N Brain Problems N HERPES N DEMENTIA N HEADACHES/MIGRAINES N SEIZURES/EPILEPSY N VASCULAR DISEASE N PACEMAKER N Blood Disorder N DIZZINESS Y HEART DISEASE/HEART PROBLEMS N KIDNEY DISEASE N MULTIPLE SCLEROSIS N CARDIAC ARRHYTHMIA N CANCER: SPECIFY N ATRIAL FIBRILLATION N Gall Stones N PULMONARY EMBOLISM N AUTOIMMUNE DISEASE N Gynecological History Statement/Question Response Date of Last Mammogram 05/30/2019 Date of Last Colonoscopy 07/12/2018 Most Recent Bone Density 07/05/2018 Obstetrics History GPAL:G 0 P 0 0 0 0 Immunizations Vaccine Type Date Status Note Provider Nam e and Address Organization Details Recorded Time COVID-19, mRNA, LNP-S, PF, 100 mcg/0.5mL dose or 50 mcg/0.25mL dose 1 completed Not Available [facility] 07/05/2023 01:59:40 COVID-19, mRNA, LNP-S, PF, 100 mcg/0.5mL dose or 50 mcg/0.25mL dose 1 completed Not Available [facility] 07/05/2023 01:59:40 COVID-19, mRNA, LNP-S, PF, 100 mcg/0.5mL dose or 50 mcg/0.25mL dose 1 completed Not Available [facility] 07/05/2023 01:59:40 Influenza, split virus, trivalent, preservative 0 completed Not Available [facility] 07/05/2023 01:59:40 COVID-19, mRNA, LNP-S, PF, 100 mcg/0.5mL dose or 50 mcg/0.25mL dose 2 completed Not Available [facility] 07/05/2023 01:59:40 Influenza, high-dose, quadrivalent, PF 2 completed Not Available [facility] 07/05/2023 01:59:40 Influenza, split virus, quadrivalent, PF 0 completed Not Available [facility] 07/05/2023 01:59:40 Influenza, split virus, quadrivalent, PF 8 completed Not Available [facility] 07/05/2023 01:59:40 Influenza, split virus, quadrivalent, PF 7 completed Not Available [facility] 07/05/2023 01:59:40 Influenza, split virus, quadrivalent, PF 1 completed Not Available [facility] 07/05/2023 01:59:40 Influenza, split virus, trivalent, preservative 5 completed Not Available [facility] 07/05/2023 01:59:40 Past Encounters Encounter ID Performer Location Encounter Start Date Encounter Closed Date Diagnosis/Indication Diagnosis SNOMED-CT Code Diagnosis ICD10 Code Diagnosis Note [id number] [facility] [place] [facility] Clara Perez., [address] [address] 02/21/2021 00:00:00 03/20/2021 11:55:30 [id number] [facility] [place] [address] [place] [address] 02/28/2021 00:00:00 02/28/2021 11:43:08 [id number] [facility] [place] [address] [place] [address] 04/07/2021 00:00:00 04/08/2021 08:42:19 [id number] _ATHENA_M IGRATION_ DEFAULT_1 _1 , 05/11/2021 00:00:00 05/11/2021 16:47:10 [id number] [facility] [place] [address] [place] [address] 05/30/2021 00:00:00 05/31/2021 10:10:20 [id number] [facility] [place] [address] [place] [address] Ana., [address] [address] 07/15/2021 00:00:00 07/15/2021 22:59:45 [id number] [facility] [place] [address] [place] [address] Ana., [address] [address] 08/15/2021 00:00:00 08/15/2021 21:31:54 [id number] [facility] [place] [address] [place] [address] Ana., [address] [address] 08/17/2021 00:00:00 08/17/2021 22:23:55 [id number] [facility] [place] [address] [place] [address] Ana., [address] [address] 08/26/2021 00:00:00 08/26/2021 22:12:03 [id number] [facility] [place] [address] [address] 09/05/2021 00:00:00 10/03/2021 20:54:02 [id number] [facility] [place] [address] [place] [address] Ave[address] [address] 11/28/2021 00:00:00 12/01/2021 21:06:10 [id number] [facility] [place] [address] [place] [address] 12/05/2021 00:00:00 12/05/2021 16:23:45 [id number] [facility] [address] [place] [address] Ave[address] [address] 03/20/2022 00:00:00 03/27/2022 17:02:33 [id number] [facility] [address] [place] [address] Ave[address] [address] 05/26/2022 00:00:00 05/26/2022 16:06:37 [id number] [facility] [place] [address] [place] [address] 06/05/2022 00:00:00 06/05/2022 16:31:00 [id number] [facility] [address] [place] [address] Ave[address] [address] 06/12/2022 00:00:00 06/13/2022 08:35:26 [id number] _ATHENA_M IGRATION_ DEFAULT_1 _1 , 06/23/2022 00:00:00 06/25/2022 15:15:55 [id number] _ATHENA_M IGRATION_ DEFAULT_1 _1 , 06/30/2022 00:00:00 07/04/2022 20:35:34 [id number] _ATHENA_M IGRATION_ DEFAULT_1 _1 , 07/07/2022 00:00:00 07/08/2022 15:55:39 [id number] [facility] [place] [address] [place] [address] 07/10/2022 00:00:00 07/10/2022 16:05:23 [id number] _ATHENA_M IGRATION_ DEFAULT_1 _1 , 07/14/2022 00:00:00 07/14/2022 12:49:18 [id number] _ATHENA_M IGRATION_ DEFAULT_1 _1 , 07/21/2022 00:00:00 07/22/2022 18:24:28 [id number] [facility] [place] [address] [place] [address] [place] [address] 08/07/2022 00:00:00 08/13/2022 15:20:46 [id number] _ATHENA_M IGRATION_ DEFAULT_1 _1 , 08/11/2022 00:00:00 08/14/2022 12:15:04 [id number] _ATHENA_M IGRATION_ DEFAULT_1 _1 , 09/08/2022 00:00:00 09/11/2022 11:14:31 [id number] [facility] [place] [address] [place] [address] [place] [address] 12/15/2022 00:00:00 12/16/2022 15:49:53 [id number] Manuel Archibald MD [facility] [place] [address] [place] [address] [place] [address] 05/25/2023 14:49:18 05/25/2023 15:59:42 Cervical radiculopathy 28273390 M54.12 [id number] Manuel Archibald MD [facility] [place] [address] [place] [address] [place] [address] 06/13/2023 15:17:20 06/13/2023 16:47:14 Cervical radiculopathy 22647998 M54.12 [id number] Teresita Lucio MD [facility] [place] [address] [place] [address] 06/18/2023 14:16:07 06/18/2023 15:02:28 Uncontrolled type 2 diabetes mellitus [id number] E11.65 A1C of 9% down from 9.4%- continue on tresiba 74 units at bedtime and patient advised to titrate up by 6 units every 4 days until fasting glucose is running 90-120 mg/dL consistent ly. Continue on metformin for insulin sensitizat ion and glimepirid e along with ozempic and advised to start on ozempic 0.25 mg once weekly and titrate up to 0.5 mg once weekly as tolerated as she is struggling with diet and portion control. Discussed carb counting and how to read food labels. Recommende d patient to utilize the diabetesfo [employer] from the ADA website to help with food preparatio n as this presents ideal carb content per meal so this will make carb counting much easier for patient. Recommende d she incorporat e natural insulin insurance agents supervisor s such as pears, apples, cinnamon, tasha and sweet potatoes to help mobilize her endogenous insulin. Recommende d up to 150 minutes of moderate level activity/e xercise weekly. Dyslipidemia [id number] E 78.5 Continue on statin therapy as LDL in range. Weight gain 4798745 R63. 5 Will send for low dose dexa suppressio n testing to screen for hypercorti solic state. She is aware of my resignatio n and she needs to get labs completed MARIA GUADALUPE so I can review these and see if there are any concerns. Spent up to 25 minutes preparing to see the patient (eg, review of tests), obtaining and/or reviewing separately obtained history, performing a medically appropriat e examinatio n and evaluation , counseling and educating the patient, ordering medication s, tests, along with documentin g clinical informatio n in the electronic health record, independen tly interpreti ng results and communicat ing results to the patient. Patient can be followed by PCP - she/he is aware of my resignatio n and last day of August 10. If needed his/her PCP can refer patient to another endocrinol ogist in the area. All questions /concerns answered and refills necessary at visit today. [id number] Manuel Archibald MD [facility] [place] [address] [facility] [place] [address] 07/18/2023 13:45:29 07/18/2023 14:31:29 Diabetes mellitus [id number] E11.9 Dyslipidemia [id number] E 78.5 Essential hypertension 04004708 I10 Obstructiv e sleep apnea syndrome 24671739 G47.33 [id number] Manuel Archibald MD [id number] [address] [facility], [address] [place] [address] 11/21/2023 14:55:06 11/21/2023 17:26:00 Essential hypertension 50846154 I10 Obstructiv e sleep apnea syndrome 24007184 G47.33 Gastroesop hageal reflux disease 573175649 K21.9 Type 2 miguel betes mellitus without complication 228399916 E11.9 Health Concerns Section Related Observation LastModified by Organization Detai ls LastModified Time None Recorded Concern Status LastModified by Organization Details LastModified Time None Recorded Advance Directives Directive N: Payers Encounter Date Sequence Insurance Name Policy Number Policy Love Covered Member ID Love Member ID Guarantor Name 05/25/2023 1 [place] Melanie C Divietro [id number] Melanie C Divietro 05/25/2023 2 [employer] (MEDICARE SUPPLEMENT) Melanie C Divietro [id number] Melanie C Divietro 06/13/2023 1 [place] Melanie C Divietro [id number] Melanie C Divietro 06/13/2023 2 [employer] (MEDICARE SUPPLEMENT) Melanie C Divietro [id number] Melanie C Divietro 06/18/2023 1 [place] Melanie C Divietro [id number] Melanie C Divietro 06/18/2023 2 [employer] OPT[employer] (MEDICARE SUPPLEMENT) Melanie C Divietro [id number] Melanie C Divietro 07/18/2023 1 [place] Melanie C Divietro [id number] Melanie C Divietro 07/18/2023 2 [employer] (MEDICARE SUPPLEMENT) Melanie C Divietro [id number] Melanie Osborne 11/21/2023 1 [place] Melanie Osborne [id number] Melanie Osborne 11/21/2023 2 [employer] (MEDICARE SUPPLEMENT) Melanie Osborne [id number] Melanie Osborne Notes Date Note Type Note Provider Name and Address Organization Details Recorded Time 05/25/2023 text/html Couple of days o f pain in her upper medial shoulder blade area on the right radiating down her arm to her elbow worse with movement nothing makes better constant moderate to severe no bowel or bladder problems no trauma no fever chills or constitutional complaints Manuel Archibald MD [address], [place], [address], [employer] 05/26/2023 11:18:47 06/13/2023 text/html has not been abl e to do therapy yet need CPAP supplies and is gaining benefit in using it Manuel Archibald MD [address], [place], [address], [employer] 07/02/2023 21:50:15 06/18/2023 text/html 68 yo female com es in for follow up in management of poorly controlled type 2 DM (A1C of 9%), dyslipidemia. last seen in Jun at that time we had patient continue on tresiba 76 units daily and continue titrating by 7 units to maintain FBG 90-130.We had patient continue metformin and glimepiride scale for now. We added ozempic 0.5 mg once weekly. She never started the ozempic and she is struggling with eating and portion control. we recommended DST and patient did not complete this. She is now up 80 units of tresiba. Sugars are running under 140 mg/dlpremeals under 150 mg/dL labs from 06/12/23:a1c 9%TSH of 0.992 uIU/mlFT4 of 1.27 ng/dLglucose 141 mg/dLCr normalLFT szycsh022/189/43/62m icroalbumin 13 ug/mg Teresita Lucio MD [address], [place], [address], [employer] 06/18/2023 15:03:46 07/18/2023 text/html Diabetes no polyphagia no polydipsia. Dyslipidemia could do better with diet. Hypertension no chest pain or headache sleep apnea getting benefit from it treatment Manuel Archibald MD [address], [address], [place], [address], [employer] 10/25/2023 22:39:58 11/21/2023 text/html Diabetes no polyphagia no polydipsia. Dyslipidemia could do better with diet. Hypertension no chest pain or headache sleep apnea getting benefit from it treatment Manuel Archibald MD [address], [address], [place], [address], [facility] 11/28/2023 08:34:26 OBGyn Episode No OBEpisode recorded.
--- OUTSIDE RECORDS SUMMARY | 2025-01-13 09:29 | XMS_ITS | Data Portability ---
Author Organization [facility] Address [address] [facility] [place] [address] Care Team Providers Care Fire Protection Equipment Technician Name Role Phone ABHISHEK CORREA Sleep Medicine NORAH ARCHIBALD Primary Care Provider JUAN R FERRARI Tipple Engineer BELA REDMOND Continuum Of Care Manager ABELARDO AC Side Laster SENDY CASH Webbing Weaver SHOBHA QUEEN OTHER Assessment Encounter Date Assessment Date Assessment LastModified by Organization Details LastModified Time 01/10/2024 01/10/2024 Endocrinology. Colonoscopy. Recent blood work done by Zainab we will retrieve ideal body weight regular exercise and diagnosis and assessment plan been discussed follow-up in 4 months. She is using the CPAP and getting benefit Not available 01/13/2024 12:50:43 05/06/2024 05/06/2024 blood work. Old records. Continue current therapy. . Diagnosis in the assessment and plan discussed targets for blood pressure LDL and A1c have been discussed states she is up-to-date on her diabetic eye exams done sure about screenings and immunizations so we will request her old records. [email or web address] Not available 05/06/2024 23:14:57 09/09/2024 09/09/2024 continue current therapy blood work next month healthy lifestyle care instructions all questions have been answered she will see me back in 4 months obtain her screening reports breast: And colon [email or web address] Not available 09/13/2024 22:15:11 09/16/2024 09/16/2024 assessments and screenings in immunizations discussed and ordered were appropriate all questions have been answered we will keep her regular appointment [email or web address] Not available 09/16/2024 20:37:04 01/06/2025 01/06/2025 continue current therapy healthy lifestyle care instructions CBC CMP a lipid and a hemoglobin A1c has upcoming appointment with endo I believe but if she can not get in any time soon please get these done she does see Podiatry and she has seen the eye doctor we will try to get those reports. Pneumococcal vaccine today return to clinic 4 months' [email or web address] Not available 01/11/2025 16:01:58 Plan of Treatment Reminders Order Date Submit Date Provider Last Modified By Organization Details Last Modified Time Details Appointments ANY 15 2024 01:00P Dejan Archibald MD Not available Not available Not available Lab HbA1c (hemoglob in A1c), blood 2023 024 [facility], [address], [place], [address], 05/28/2024 10:13:43 lipid panel, serum 2023 024 [facility], [address], [place], [address], 05/28/2024 10:13:42 CBC w/ auto diff 2023 024 [facility], [address], [place], [address], 05/28/2024 10:13:44 CMP, serum or plasma 2023 024 [facility], [address], [place], [address], 05/28/2024 10:13:41 Referral nutrition ist/dieti jose referral 2023 024 [facility], [address] [place] [address] [address], [place], [address], 01/06/2025 14:14:12 endocrino logy referral 2023 024 [place], [address] , [place], [address], 05/22/2024 12:24:18 Procedures [facility]osco py procedure (PROC) 2023 024 ADELITA Baez MD, [address], [address], [place], [address], 09/15/2024 13:11:36 Surgeries None recorded. Imaging None recorded. Medication Orders None recorded. Patient TargetsNo targets recorded. Patient Instructions Encounter Date Encounter Id Patient Instructions Last Modified By Organization Details Last Modified Time 09/09/2024 [id number] A healthy lifestyle: care instructions [email or web address] Not available 09/13/2024 22:15:53 09/16/2024 [id number] advance care planning: care instructions [email or web address] Not available 09/16/2024 16:54:42 Medicare Well[place] [facility] Preventive Checklist [email or web address] Not available 09/16/2024 16:54:42 01/06/2025 [id number] A healthy lifestyle: care instructions [email or web address] Not available 01/06/2025 16:49:23 Reason for Referral Endocrinology Referral for T ype 2 diabetes mellitus Referring Physician: Norah Archibald, Internal Medicine, Encounter Date: 01/10/2024 Transportation Equipment Painter/dietitian Refer ral for Type 2 diabetes mellitus Referring Physician: Norah Archibald, Internal Medicine, Encounter Date: 09/16/2024 Results Created Date Observation Date Name Description Value Unit Range Abnormal Flag Note LastModifiedBy Organization Detail LastModifiedTime 05/27/20 24 05/28/2024 CMP14 glucose 227 mg/dL 70-99 above high normal Not Available [facility] ([facility]) [address], [place], [address], 05/28/2024 10:13:41 05/27/20 24 05/28/2024 CMP14 BUN 21 mg/dL 8-27 Not Available [facility] ([facility]) [address], [place], [address], 05/28/2024 10:13:41 05/27/20 24 05/28/2024 CMP14 creatinine 0.97 mg/dL 0.57-1 .00 Not Available [facility] ([facility]) [address] [place], [address], 05/28/2024 10:13:41 05/27/20 24 05/28/2024 CMP14 eGFR 64 mL/mi n/1.7 3 >59 Not Available [facility] ([facility]) [address] [place], [address], 05/28/2024 10:13:41 05/27/20 24 05/28/2024 CMP14 BUN/creatini ne ratio 22 12-28 Not Available [facility] ([facility]) [address] [place], [address], 05/28/2024 10:13:41 05/27/20 24 05/28/2024 CMP14 sodium 137 mmol/ L 134-14 4 Not Available [facility] ([facility]) [address] [place], [address], 05/28/2024 10:13:41 05/27/20 24 05/28/2024 CMP14 potassium 4.6 mmol/ L 3.5-5. 2 Not Available [facility] ([facility]) [address] [place], [address], 05/28/2024 10:13:41 05/27/20 24 05/28/2024 CMP14 chloride 98 mmol/ L 96-106 Not Available [facility] ([facility]) [address] [place], [address], 05/28/2024 10:13:41 05/27/20 24 05/28/2024 CMP14 carbon dioxide, total 24 mmol/ L 20-29 Not Available [facility] ([facility]) [address], [place], [address], 05/28/2024 10:13:41 05/27/20 24 05/28/2024 CMP14 calcium 9.1 mg/dL 8.7-10 .3 Not Available [facility] ([facility]) [address] [place], [address], 05/28/2024 10:13:41 05/27/20 24 05/28/2024 CMP14 protein, total 6.6 g/dL 6.0-8. 5 Not Available [facility] ([facility]) [address] [place], [address], 05/28/2024 10:13:41 05/27/20 24 05/28/2024 CMP14 albumin 4.4 g/dL 3.9-4. 9 Not Available [facility] ([facility]) [address] [place], [address], 05/28/2024 10:13:41 05/27/20 24 05/28/2024 CMP14 globulin, total 2.2 g/dL 1.5-4. 5 Not Available [facility] ([facility]) [address], [place], [address], 05/28/2024 10:13:41 05/27/20 24 05/28/2024 CMP14 bilirubin, total 0.3 mg/dL 0.0-1. 2 Not Available [facility] ([facility]) [address] [place], [address], 05/28/2024 10:13:41 05/27/20 24 05/28/2024 CMP14 alkaline phosphatase 49 IU/L 44-121 Not Available [facility]) [address] [place], [address], 05/28/2024 10:13:41 05/27/20 24 05/28/2024 CMP14 AST (SGOT) 17 IU/L 0-40 Not Avail able [facility] ([facility]) [address], [place], [address], 05/28/2024 10:13:41 05/27/20 24 05/28/2024 CMP14 ALT (SGPT) 19 IU/L 0-32 Not Avail able [facility] ([facility]) [address], [place], [address], 05/28/2024 10:13:41 05/27/20 24 05/28/2024 LIPID PANEL cholesterol, total 122 mg/dL 100-19 9 Not Available [facility] ([facility]) [address] [place], [address], 05/28/2024 10:13:42 05/27/20 24 05/28/2024 LIPID PANEL triglyceride s 166 mg/dL 0-149 above high normal Not Available [facility] ([facility]) [address] [place], [address], 05/28/2024 10:13:42 05/27/20 24 05/28/2024 LIPID PANEL HDL cholesterol 43 mg/dL >39 Not Available [facility] ([facility]) [address], [place], [address], 05/28/2024 10:13:42 05/27/20 24 05/28/2024 LIPID PANEL VLDL cholesterol abhinav 28 mg/dL 5-40 Not Available [facility] ([facility]) [address] [place], [address], 05/28/2024 10:13:42 05/27/20 24 05/28/2024 LIPID PANEL LDL chol calc ([facility]) 51 mg/dL 0-99 Not Available [facility]) [address] [place], [address], 05/28/2024 10:13:42 05/27/20 24 05/28/2024 HEMOG LOBIN A1C hemoglobin A1C 8.8 % 4.8-5. 6 above high normal Predi abete s: 5.7 - 6.4 Diabe grover: >6.4 Glyce ivelisse contr ol for adult s with diabe grover: <7.0 Not Available [facility] ([facility]) [address], [place], [address], 05/28/2024 10:13:43 05/27/20 24 05/28/2024 CBC WITH DIFFE RENTI AL/PL ATELE T WBC 5.7 x10e3 /uL 3.4-10 .8 Not Available [facility] ([facility]) [address] [place], [address], 05/28/2024 10:13:44 05/27/20 24 05/28/2024 CBC WITH DIFFE RENTI AL/PL ATELE T RBC 4.35 x10e6 /uL 3.77-5 .28 Not Available [facility] ([facility]) [address] [facility], [place], [address], 05/28/2024 10:13:44 05/27/20 24 05/28/2024 CBC WITH DIFFE RENTI AL/PL ATELE T hemoglobin 13.0 g/dL 11.1-1 5.9 Not Available [facility] ([facility]) [address] [place], [address], 05/28/2024 10:13:44 05/27/20 24 05/28/2024 CBC WITH DIFFE RENTI AL/PL ATELE T hematocrit 39.7 % 34.0-4 6.6 Not Available [facility] ([facility]) [address] [place], [address], 05/28/2024 10:13:44 05/27/20 24 05/28/2024 CBC WITH DIFFE RENTI AL/PL ATELE T MCV 91 fL 79-97 Not Available [facility] ([facility]) [address] [place], [address], 05/28/2024 10:13:44 05/27/20 24 05/28/2024 CBC WITH DIFFE RENTI AL/PL ATELE T MCH 29.9 pg 26.6-3 3.0 Not Available [facility] ([facility]) [address] [facility], [place], [address], 05/28/2024 10:13:44 05/27/20 24 05/28/2024 CBC WITH DIFFE RENTI AL/PL ATELE T MCHC 32.7 g/dL 31.5-3 5.7 Not Available [facility] ([facility]) [address] [facility], [place], [address], 05/28/2024 10:13:44 05/27/20 24 05/28/2024 CBC WITH DIFFE RENTI AL/PL ATELE T RDW 12.0 % 11.7-1 5.4 Not Available [facility] ([facility]) [address], [place], [address], 05/28/2024 10:13:44 05/27/20 24 05/28/2024 CBC WITH DIFFE RENTI AL/PL ATELE T platelets 217 x10e3 /uL 150-45 0 Not Available [facility] ([facility]) [address], [place], [address], 05/28/2024 10:13:44 05/27/20 24 05/28/2024 CBC WITH DIFFE RENTI AL/PL ATELE T neutrophils 57 % notest ab. Not Available [facility] ([facility]) [address], [place], [address], 05/28/2024 10:13:44 05/27/20 24 05/28/2024 CBC WITH DIFFE RENTI AL/PL ATELE T lymphs 34 % notest ab. Not Available [facility] ([facility]) [address], [place], [address], 05/28/2024 10:13:44 05/27/20 24 05/28/2024 CBC WITH DIFFE RENTI AL/PL ATELE T monocytes 6 % notest ab. Not Available [facility] ([facility]) [address], [place], [address], 05/28/2024 10:13:44 05/27/20 24 05/28/2024 CBC WITH DIFFE RENTI AL/PL ATELE T eos 1 % notest ab. Not Available [facility] ([facility]) [address], [place], [address], 05/28/2024 10:13:44 05/27/20 24 05/28/2024 CBC WITH DIFFE RENTI AL/PL ATELE T basos 1 % notest ab. Not Available [facility] ([facility]) [address], [place], [address], 05/28/2024 10:13:44 05/27/20 24 05/28/2024 CBC WITH DIFFE RENTI AL/PL ATELE T neutrophils (absolute) 3.3 x10e3 /uL 1.4-7. 0 Not Available [facility] ([facility]) [address], [place], [address], 05/28/2024 10:13:44 05/27/20 24 05/28/2024 CBC WITH DIFFE RENTI AL/PL ATELE T lymphs (absolute) 1.9 x10e3 /uL 0.7-3. 1 Not Available [facility] ([facility]) [address], [place], [address], 05/28/2024 10:13:44 05/27/20 24 05/28/2024 CBC WITH DIFFE RENTI AL/PL ATELE T monocytes(ab solute) 0.3 x10e3 /uL 0.1-0. 9 Not Available [facility] ([facility]) [address], [place], [address], 05/28/2024 10:13:44 05/27/20 24 05/28/2024 CBC WITH DIFFE RENTI AL/PL ATELE T eos (absolute) 0.1 x10e3 /uL 0.0-0. 4 Not Available [facility] ([facility]) [address], [place], [address], 05/28/2024 10:13:44 05/27/20 24 05/28/2024 CBC WITH DIFFE RENTI AL/PL ATELE T baso (absolute) 0.0 x10e3 /uL 0.0-0. 2 Not Available [facility] ([facility]) [address] [place], [address], 05/28/2024 10:13:44 05/27/20 24 05/28/2024 CBC WITH DIFFE RENTI AL/PL ATELE T immature granulocytes 1 % notest ab. Not Available [facility] ([facility]) [address], [place], [address], 05/28/2024 10:13:44 05/27/20 24 05/28/2024 CBC WITH DIFFE RENTI AL/PL ATELE T immature grans (abs) 0.0 x10e3 /uL 0.0-0. 1 Not Available [facility] ([facility]) [address] [place], [address], 05/28/2024 10:13:44 12/05/19 25 12/05/2024 DEXA No observ ation record ed. [email or web address] Not Available 2024 09:50:27 Result Notes None recorded. Problems Name Problem SNOMED Code Status Onset Date Resolution Date Notes Provider Name and Address Organization Details Recorded Time Type 2 diabetes mellitus 01714585 Active 2023 YUMI Rhodes [place] [facility] 14:58:57 Abdominal pain 16438722 Active 2023 [place] [facility] 14:58:59 Essential hypertension 18387778 Active 2023 YUMI [place] [facility] 4 14:59:00 Hyperlipidemia 44485656 Active 2023 Basilio Pizarro [place] - [facility] 4 14:59:02 Gastroesophage al reflux disease without esophagitis 363849498 Active 2023 Basilio Pizarro [place] - [facility] 4 14:59:03 Asthma 973159080 Active 2023 Basilio Pizarro [place] [facility] 4 14:59:05 Obstructive sleep apnea syndrome 34101342 Active 2023 YUM[place] [facility] 14:59:06 Anxiety 41322804 Active 2023 YUMI [place], [place] [facility] 09:41:14 Problem Notes None recorded. Procedures Surgical History Date Name Laterality Status Provider Name and Address Organization Details Recorded Time Appendectomy completed Winter Byrne MA [facility] 01/10/2024 14:54:51 Eye Surgery completed Winter WarrendaleYUMI chawla [facility] 01/10/2024 14:54:59 Breast Surgery completed Winter Byrne MA [facility] 01/10/2024 14:55:10 Dilation and Curettage completed Winter CatyYUMI chawla [facility] 01/10/2024 14:55:17 hysterectomy completed Winter Byrne MA [facility] 01/10/2024 14:55:32 oophorectomy completed Winter WarrendaleYUMI chawla [facility] 01/10/2024 14:55:44 Carpal tunnel surgery completed Winter WarrendaleYUMI chawla [facility] 01/10/2024 14:56:04 Imaging Results Imaging Date Name Status LastModified by Organizatio n Details LastModified Time 12/05/2024 DEXA completed [facility] Information no t available 12/08/2024 09:50:27 Procedure Notes None recorded. Medical Equipment None Reported. Allergies Allergen ID Allergen Name Allergen Category Reaction Reaction Severity Criticality Documentation Date Start Date Code Code System Note Provider Name and Address Organization Details Recorded Time 103536 erythromy alessandra medicatio n decreased blood pressure Not available low 01/10/2024 4053 RxNorm Not Available Not Available Not Available Medications Name Sig Start Date Stop Date Status Note LastModified by Organization Details LastModified Time atorvasta tin 40 mg tablet TAKE 1 TABLET BY MOUTH EVERY DAY active Not Available Not Available No t Available metformin 500 mg tablet TAKE 1 TABLET BY MOUTH TWICE A DAY WITH FOOD 02/18 completed Not Available Not Available Not Available atorvasta tin 10 mg tablet TAKE 1 TABLET BY MOUTH EVERY DAY 01/09 completed Not Available Not Available Not Available tizanidin e 4 mg tablet TAKE 1 TABLET BY MOUTH TWICE A DAY FOR 10 DAYS 01/09 completed Not Available Not Available Not Available ciproflox acin 250 mg tablet TAKE 1 TABLET BY MOUTH EVERY 12 HOURS FOR 7 DAYS active Not Available Not Available No t Available glimepiri de 2 mg tablet TAKE 1 TABLET BY MOUTH TWICE A DAY WITH FOOD 09/16 completed Dose increase d Not Available Not Available Not Available alprazola m 0.25 mg tablet TAKE 1 TABLET 3 TIMES A DAY BY ORAL ROUTE. active Not Available Not Available No t Available ulike Ultra Test strips USE TO CHECK SUGARS TWICE A DAY FOR INSULIN. active Not Available Not Available No t Available dexametha sone 1 mg tablet TAKE 1 TABLET BY MOUTH NEEDED AT 10 PM NIGHT BEFORE 8 AM CORTISOL LEVEL DRAWN 05/06 completed Not Available Not Available Not Available pantopraz ole 40 mg tablet,de layed release TAKE 1 TABLET BY MOUTH EVERY DAY active Not Available Not Available No t Available glimepiri de 4 mg tablet TAKE 1 TABLET BY MOUTH 2 TIMES A DAY. active Not Available Not Available No t Available lisinopri l 5 mg tablet TAKE 1 TABLET (5 MG TOTAL) BY MOUTH DAILY. active Not Available Not Available No t Available furosemid e 20 mg tablet TAKE 1 TABLET BY MOUTH EVERY DAY active Not Available Not Available No t Available methylpre dnisolone 4 mg tablets in a dose pack TAKE 1 DOSE PACK BY MOUTH DIRECTED 01/09 completed Not Available Not Available Not Available metformin ER 500 mg tablet,ex tended release 24 hr TAKE 2 TABLETS BY MOUTH TWICE A DAY active Not Available Not Available No t Available hydroxyzi ne pamoate 25 mg capsule TAKE 2 CAPSULES BY MOUTH EVERYDAY AT BEDTIME 2024 active Not Available Not Available Not Avai lable nitrofura ntoin monohydra te/macroc rystals 100 mg capsule TAKE 1 CAPSULE BY MOUTH TWICE A DAY FOR 5 DAYS 01/06 completed Not Available Not Available Not Available fenofibra te 160 mg tablet TAKE 1 TABLET BY MOUTH EVERY DAY active Not Available Not Available No t Available BD Ultra-Fin e Short Pen Needle 31 gauge x 5/16 USE TO TEST ONCE DAILY active Not Available Not Available No t Available Janumet XR 50 mg-1,000 mg tablet,ex tended release TAKE 2 TABLETS BY MOUTH EVERY DAY 02/18 completed Not Available Not Available Not Available Tresiba FlexTouch U-200 insulin 200 unit/mL (3 mL) subcutane ous pen INJECT 60 UNITS UNDER THE SKIN ONCE NIGHTLY active Not Available Not Available No t Available OneTouch Ultra2 Meter USE TO TEST BLOOD SUGAR DAILY 2023 active Not Available Not Available Not Avai lable OneTouch Delica Plus Lancet 30 gauge USE TO TEST TWICE DAILY active Not Available Not Available No t Available BinaxNOW COVID-19 Ag Self Test kit FOLLOW DIRECTIO NS ON PACKAGE 01/06 completed Not Available Not Available Not Available Paxlovid 300 mg (150 mg x 2)-100 mg tablets in a dose pack TAKE 3 TABS BY MOUTH TWICE A DAY FOR 5 DAYS DIRECTED ON PACKAGE INSTRUCT IONS 09/16 completed Not Available Not Available Not Available Ozempic 0.25 mg or 0.5 mg (2 mg/3 mL) subcutane ous pen injector INJECT 0.25MG UNDER THE SKIN ONCE WEEKLY X4 WEEKS, THEN INCREASE TO 0.5MG ONCE WEEKLY 02/26 completed Not Available Not Available Not Available Vitals Date Recorded Body weight Body mass index (BMI) Body height Heart rate Oxygen saturation Oxygen saturation in Arterial blood by Pulse oximetry Body temperature Respiratory rate Systolic blood pressure Diastolic blood pressure Provider Name and Address Organization Details Last Updated DateTime 4 44398.7 8 g 42.1 kg/m2 147.32 cm 64 /min 98 % 98 % 99 [degF] 16 /min 130 mm[Hg] 74 mm[Hg] Winter Byrne [place] [facility] 4 14:59:36 Date Recorded Body height Provider Name an d Address Organization Details Last Updated DateTime 05/06/2024 147.32 cm Enid Chavez on, RMA [facility] 05/06/2024 14:05:45 Date Recorded Body mass index (BMI) Body weight Heart rate Oxygen saturation Oxygen saturation in Arterial blood by Pulse oximetry Systolic blood pressure Diastolic blood pressure Provider Name and Address Organization Details Last Updated DateTime 4 42.4 kg/m2 17229.2 5 g 70 /min 96 % 96 % 124 mm[Hg] 72 mm[Hg] Nino May MA [facility] 4 14:15:08 Date Recorded Body height Body mass index (BMI) Body weight Heart rate Oxygen saturation Oxygen saturation in Arterial blood by Pulse oximetry Systolic blood pressure Diastolic blood pressure Provider Name and Address Organization Details Last Updated DateTime 4 147.32 cm 42 kg/m2 51486.0 7 g 68 /min 96 % 96 % 128 mm[Hg] 70 mm[Hg] Brittany Bales MA [facility] 4 14:27:07 Date Recorded Body height Body mass index (BMI) Body weight Heart rate Oxygen saturation Oxygen saturation in Arterial blood by Pulse oximetry Systolic blood pressure Diastolic blood pressure Provider Name and Address Organization Details Last Updated DateTime 4 147.32 cm 42.4 kg/m2 87835.2 5 g 80 /min 97 % 97 % 124 mm[Hg] 68 mm[Hg] Elise Grimaldo MA [facility] 4 15:15:04 Date Recorded Pain severity - 0-10 verbal numeric rating [Score] - Reported Provider Name and Address Organization Details Last Updated DateTime 09/16/2024 0 Karen Satinder [facility] 09/16/2024 15:17:59 Date Recorded Body height Body mass index (BMI) Body weight Heart rate Oxygen saturation Oxygen saturation in Arterial blood by Pulse oximetry Systolic blood pressure Diastolic blood pressure Provider Name and Address Organization Details Last Updated DateTime 5 147.32 cm 42.4 kg/m2 99583.1 7 g 72 /min 98 % 98 % 128 mm[Hg] 72 mm[Hg] Guillermina Montoya MA [facility] 5 14:12:31 Social History Question Answer Notes LastModified by Organizat ion Details LastModified Time Tobacco Smoking Status Never Smoker Winter Byrne MA [facility] [place] [place] - [facility] 01/10/2024 14:54:06 Do You Have An Advance Directive? No Information not available 05/06/2024 What Is Your Level Of Alcohol Consumption? Occasional 1-2 A Month - Social Events Information not available 09/16/2024 Are You Blind Or Do You Have Difficulty Seeing? No Information not available 05/06/2024 What Is Your Level Of Caffeine Consumption? Heavy Tea Information not available 09/16/2024 In The 14 Days Before Symptom Onset, Have You Had Close Contact With A Laboratory-confi rmed COVID-19 While That Case Was Ill? No Information not available 01/06/2025 In The 14 Days Before Symptom Onset, Have You Had Close Contact With A Person Who Is Under Investigation For COVID-19 While That Person Was Ill? No Information not available 01/06/2025 Have You Been To An Area Known To Be High Risk For COVID-19? No Information not available 01/06/2025 Are You Currently Employed? No Retired Information not available 05/06/2024 Are You Deaf Or Do You Have Serious Difficulty Hearing? No Information not available 05/06/2024 What Type Of Diet Are You Following? REGULAR Information not available 05/06/2024 What Is The Highest Grade Or Level Of School You Have Completed Or The Highest Degree You Have Received? [id number] Information not available 09/16/2024 Are There Any Guns Present In Your Home? No Information not available 09/16/2024 In The Past 7 Days, How Many Days Did You Exercise? 0 Information not available 09/16/2024 In The Past 7 Days, How Much Pain Have You [place]? None Information not available 09/16/2024 In General, Would You Say You Health Is: Very Good Information not available 09/16/2024 How Would You Describe The Condition Of Your Mouth And Teeth- Including False Teeth Or Dentures? Very Good Information not available 09/16/2024 Each Night, How Many Hours Of Sleep Do You Get? 7 Large Variation In Hours Of Sleep Per Night Information not available 09/16/2024 Has Anyone Ever Told You That You Snore? Yes CPAP Information not available 09/16/2024 In The Past 7 Days, How Often Have You [place] Sleepy In The Daytime? Sometimes Information not available 09/16/2024 # Alcohol Drinks Per Week 0 Information not available 09/16/2024 What Was The Date Of Your Most Recent Tobacco Screening? 01/06/2025 Information not available 01/06/2025 What Is Your Relationship Status? Single Information not available 05/06/2024 Do You Use Your Seat Belt Or Car Seat Routinely? Yes Information not available 05/06/2024 Do You Have Smoke And Carbon Monoxide Detectors In Your Home? Yes Information not available 01/10/2024 Do You Feel Stressed (tense, Restless, Nervous, Or Anxious, Or Unable To Sleep At Night)? [id number] Information not available 05/06/2024 Do You Use Any Illicit Or Recreational Drugs? No Information not available 01/10/2024 Do You Use Sunscreen Routinely? No Information not available 09/16/2024 Has Tobacco Cessation Counseling Been Provided? No Information not available 05/06/2024 Do You Or Have You Ever Used Any Other Forms Of Tobacco Or Nicotine? No Information not available 05/06/2024 Sex: Female Functional Status Question Answer Note LastModified by Organizat ion Details LastModified Time Are you able to care for yourself? Yes Information not available 05/06/2024 What is your exercise level? None active lifestyle Information not available 09/16/2024 Mental Status None recorded. Family History Relationship Description Onset Age of this Age Resolved Age Notes LastModified by Organization Details LastModified Time Mother Malignant tumor of breast [email or web address] Not available 2023 14:52:43 Mother Depressive disorder hdoverma Not available 2023 14:52:51 Mother Diabetes mellitus hdoverma Not available 2023 14:53:05 Mother Heart disease hdoverma Not available 2023 14:53:18 Mother Hypercholest erolemia hdoverma Not available 2023 14:53:28 Mother Familial ovarian cancer hdoverma Not available 2023 14:53:48 Father Heart disease hdoverma Not available 2023 14:53:14 Father Hypercholest erolemia hdoverma Not available 2023 14:53:25 Medical History Condition Response Coronary Artery Disease N Other Y High Blood Pressure Y Atrial Fibrillation N Kidney or Bladder Problems N Thyroid Problems N GI Problems Y Depression N COPD N Blood Clots N Have you had a mammogram in the last yea r? N Skin Problems N Anemia N Heart Attack (MA) N Anxiety Disorder Y Diabetes Y Muscle, Joint, or Bone Problems N Seizures/Epilepsy N Have you had a colonoscopy in the last 1 0 years? Y Acid Reflux (GERD) Y Cancer N Stroke N Asthma Y Allergies Y Have you had a PSA blood test in the las t year? N High Cholesterol Y Hepatitis N Liver Disease N Headaches N Heart Failure N Osteoporosis N Gynecological History Statement/Question Response If Post Menopausal, Age at Menopause 41 Obstetrics History GPAL:G 0 P 0 0 0 0 Immunizations Vaccine Type Date Status Note Provider Nam e and Address Organization Details Recorded Time zoster recombinant 2 completed YUM[place], [place] [facility] 01/10/2024 14:54:24 zoster recombinant 4 [place]UM[place] [facility] 01/10/2024 14:54:24 Influenza, high-dose, quadrivalent, PF 2 [place] [facility] 01/10/2024 14:54:24 Influenza, high-dose, quadrivalent, PF 3 [place] [facility] 01/10/2024 14:54:24 COVID-19, mRNA, LNP-S, PF, 100 mcg/0.5mL dose or 50 mcg/0.25mL dose 1 [place] [facility] 01/10/2024 14:54:24 COVID-19, mRNA, LNP-S, PF, 100 mcg/0.5mL dose or 50 mcg/0.25mL dose 1 [place] YUM[place] [facility] 01/10/2024 14:54:24 COVID-19, mRNA, LNP-S, PF, 100 mcg/0.5mL dose or 50 mcg/0.25mL dose 2 completed Winter Byrne [facility] [place] [facility] 01/10/2024 14:54:24 COVID-19, mRNA, LNP-S, PF, 100 mcg/0.5mL dose or 50 mcg/0.25mL dose 2 completed Winter Byrne [facility] [place] [facility] 01/10/2024 14:54:24 COVID-19, mRNA, LNP-S, PF, 100 mcg/0.5mL dose or 50 mcg/0.25mL dose 1 [place]UM[place] [facility] 01/10/2024 14:54:24 COVID-19, mRNA, LNP-S, bivalent, PF, 50 mcg/0.5 mL or 25mcg/0.25 mL dose 2 completed YUM[place] [facility] 01/10/2024 14:54:24 RSV, recombinant, protein subunit RSVpreF, adjuvant reconstituted, 0.5 mL, PF 3 completed [place]UM[place] [facility] 01/10/2024 14:54:24 COVID-19, mRNA, LNP-S, PF, 50 mcg/0.5 mL 3 [place]UM[place] [facility] 01/10/2024 14:54:24 Influenza, split virus, trivalent, preservative 5 completed [place]UM[place] [facility] 01/10/2024 14:54:24 Influenza, split virus, trivalent, preservative 3 completed [place]UM[place] [facility] 01/10/2024 14:54:24 Influenza, split virus, quadrivalent, PF 0 [place] [facility] 01/10/2024 14:54:24 Influenza, split virus, quadrivalent, PF 1 completed Winter Byrne [place] [facility] 01/10/2024 14:54:24 Influenza, split virus, quadrivalent, PF 8 completed Winter Byrne [place] [facility] 01/10/2024 14:54:24 Influenza, split virus, quadrivalent, PF 7 completed Winter Byr[place] [facility] 01/10/2024 14:54:24 Influenza, adjuvanted, trivalent, PF 4 completed [place] Raj[place] [facility] 09/15/2024 09:55:16 COVID-19, mRNA, LNP-S, PF, bandar-sucrose, 30 mcg/0.3 mL 4 completed [place] Raj[place] [facility] 09/15/2024 09:55:16 Pneumococcal conjugate PCV20, polysaccharide [id number] conjugate, adjuvant, PF 5 completed Norah Archibald MD Attn: Accounting,[address] [place], [address], [place] [facility] 01/11/2025 15:57:20 Past Encounters Encounter ID Performer Location Encounter Start Date Encounter Closed Date Diagnosis/Indication Diagnosis SNOMED-CT Code Diagnosis ICD10 Code Diagnosis Note [id number] Norah Archibald MD [facility] (Adult Med) [address] [place] [address] [id number] 0 01/10/2024 14:35:06 01/10/2024 15:50:03 Type 2 diabetes mellitus 92399117 E11.9 Abdominal pain 73852230 R10.9 Essential hypertension 08827954 I10 Hyperlipidemia 06252526 E78.5 Gastroesop hageal reflux disease without esophagitis 344617339 K21.9 Asthma 591158132 J45.90 9 Obstructiv e sleep apnea syndrome 77995090 G47.33 [id number] Norah Archibald MD [facility] (Adult Med) [address] [place] [address] [id number] 0 05/06/2024 14:01:43 05/06/2024 14:56:24 Type 2 diabetes mellitus 81072324 E11.9 Abdominal pain 03250602 R10.9 Essential hypertension 57812656 I10 Hyperlipidemia 66137655 E78.5 Obstructiv e sleep apnea syndrome 66952576 G47.33 [id number] Norah Archibald MD [facility] (Adult Med) [address] [place] [address] [id number] 0 09/09/2024 14:10:36 09/09/2024 15:03:22 Body mass index 30+ - obesity 881540941 Z68.41 BMI 42 Obesity 631150032 E66.9 Essential hypertension 07877535 I10 Gastroesop hageal reflux disease without esophagitis 782174562 K21.9 Hyperlipidemia 13764407 E78.5 Obstructiv e sleep apnea syndrome 18521824 G47.33 Type 2 miguel betes mellitus 10908760 E11.9 Asthma 318431923 J45.90 9 Anxiety 60080863 F41.9 [id number] Norah Archibald MD [facility] (Adult Med) [address] [place] [address] [id number] 0 09/16/2024 14:54:15 09/16/2024 15:57:11 Adult health examination 445363276 Z00.00 Health Risk Assessment collected and reviewed Type 2 miguel betes mellitus 21272212 E11.9 [id number] Norah Archibald MD [facility] (Adult Med) [address] [place] [address] [id number] 0 01/06/2025 14:03:25 01/06/2025 14:38:35 Body mass index 40+ - severely obese 998467366 Z68.41 Obesity 123568294 E66.9 Administra tion of pneumococcal vaccine 38793543 Z23 Type 2 miguel betes mellitus 98173647 E11.9 Gastroesop hageal reflux disease without esophagitis 731065583 K21.9 Asthma 771334509 J45.90 9 Hyperlipidemia 68183517 E78.5 Anxiety 74744206 F41.9 Essential hypertension 76188681 I10 Obstructiv e sleep apnea syndrome 46875974 G47.33 Health Concerns Section Related Observation LastModified by Organization Detai ls LastModified Time None Recorded Concern Status LastModified by Organization Details LastModified Time None Recorded Advance Directives Directive N: Payers Encounter Date Sequence Insurance Name Policy Number Policy Love Covered Member ID Love Member ID Guarantor Name 01/10/2024 1 [facility] (MEDICARE REPLACEMENT/A DVANTAGE - HMO) [id number] Melanie Larios Divietro [id number] Melanie Divietro 05/06/2024 1 [facility] (MEDICARE REPLACEMENT/A DVANTAGE - HMO) [id number] Melanie C Divietro [id number] Melanie Divietro 09/09/2024 1 [facility] (MEDICARE REPLACEMENT/A DVANTAGE - HMO) [id number] Melanie C Divietro [id number] Melanie Divietro 09/16/2024 1 [facility] (MEDICARE REPLACEMENT/A DVANTAGE - HMO) [id number] Melanie C Divietro [id number] Melanie Divietro 01/06/2025 1 [facility] (MEDICARE REPLACEMENT/A DVANTAGE - HMO) [id number] Melanie Larios Divietro [id number] Melanieflorence Smithietro Notes Date Note Type Note Provider Name and Address Organization Details Recorded Time 01/10/2024 text/html She has some joselin oing abdominal pain that send lower quadrant without fever chills or passing blood. Diabetes no polyphagia polydipsia hypertension no chest pain shortness of breath hyperlipidemia does try to watch what GERD no nausea vomiting asthma no shortness of breath sleep apnea she is using her CPAP Norah Archibald MD Attn: Accounting[address] [place], [address], [facility] 01/13/2024 12:51:10 05/06/2024 text/html GERD no nausea vomiting asthma no cough wheezing or shortness of breath diabetes no polyphagia or polydipsia hypertension no headache or dizziness dyslipidemia does try to follow a low-fat diet best she can sleep apnea using her CPAP Norah Archibald MD Attn: Accounting[address] [place], [address], [facility] 05/06/2024 23:15:19 09/09/2024 text/html anxiety stable o n current medications. Dyslipidemia taking her atorvastatin without any side effects. Diabetes sugars are doing better she is going to have blood work next month. GERD doing fine no breakthrough sleep apnea compliant gaining benefit. Hypertension controlled Norah Archibald MD Attn: Accounting,[address], [place], [address], [facility] 09/13/2024 22:15:56 09/16/2024 text/html MAW 2Reported bypatient.Diet and Nutrition:discussed diet improvement Fracture Risk:no sudden unexplained fractures;history of fractures(foot as a teen) Concentration and Memory:no decreased concentrating ability; no memory lapses or loss; does not forget words Speech/Motor difficulties:no speech difficulties; no difficulty expressing formulated concepts; no difficulty with fine manipulative tasks; no difficulty writing/copying; no slowed reaction time; does not knock things over when trying to pick them up Hearing:loss of hearing: in both ears;difficulty hearing over background noise Vision:worse near(wears cheaters ) Activities of Daily Living:able to bathe with limited or no assistance; able to contol urination and bowels; able to dress with limited or no assistance; able to feed self with limited or no assistance; able to get out of chair or bed with limited or no assistance; able to groom with limited or no assistance; able to toilet with limited or no assistance Instrumental Activities of Daily Living:able to do house work with limited or no assistance; able to grocery shop with limited or no assistance; able to manage medications with limited or no assistance; able to manage money with limited or no assistance; able to prepare meals with limited or no assistance; able to use the phone with limited or no assistance Falls Risk Assessment:no frequent falls while walking; no fall in the past year; no fall since last visit; no dizziness/vertigo Home Safety:reviewed sun protection; no unsafe jay jay hazzards; no unsafe stairs; working smoke/CO detectors; practicing 'safer sex'; no fire arms; has hand bars in the bathroom/shower; good lighting in the home Norah Archibald MD Attn: Accounting[address] , [place], [address], [facility] 09/16/2024 20:37:18 01/06/2025 text/html for regular foll ow up trying to watch a low-fat diet asthma has been doing fine not really a whole lot of rescue inhaler use her anxiety has been stable still working at the local [employer] part-time JOHN CPAP doing well and she is gaining benefit hypertension blood pressure has been fine Norah Archibald MD Attn: Accounting,[address] [facility], [place], [address], [place] [facility] 01/11/2025 16:02:26 OBGyn Episode No OBEpisode recorded.
== END 2025-01-13 08:58 | disposition home or self-care (01) ==
PROVIDERS: PCP Internal Medicine; Visit Provider Obstetrics & Gynecology
DX: Z12.31 Encounter for screening mammogram for malignant neoplasm of breast (principal)
CPT/HCPCS: 77063; 77067

== ENCOUNTER 2025-01-20 14:43 | Outpatient (RCR) | payer MEDICARE, SELFPAY ==
[2025-01-20 14:45] VITALS: BMI 42.7
[2025-01-20 14:49] VITALS: BMI 42.7
== END 2025-04-06 10:47 | disposition home or self-care (01) ==
LOC: ANHDMC 14:43
PROVIDERS: PCP Internal Medicine; Visit Provider Internal Medicine
DX: E11.9 Type 2 diabetes mellitus without complications (principal); Z71.3 Dietary counseling and surveillance
CPT/HCPCS: 97802